=== PATIENT | male | born 1960 | race Caucasian/White ===

== ENCOUNTER 2022-08-25 10:22 | Outpatient (CLI) | payer OTHER, SELFPAY ==
--- NOTE | 2022-08-25 10:48 | XR_ITS ---
WS: [id number] EXAMINATION: XR chest 2V* [id number] REASON FOR EXAM: SHORTNESS OF BREATH COMPARISON: None available. ORDER DATE: 08/25/2022 10:59 AM FINDINGS: There is an ill-defined possible irregular nodular focus about 10 x 15 mm in outline possibly along t he margin of the partially visualized major fissure in the superior segment of one of the lower lobes probably left but cannot actually be visualized in the frontal view. The cardiac and mediastinal out lines are unremarkable. There are no significant pleural effusions . No significant abnormalities are noted in the spine or remainder of the bony thorax. XR/XR chest 2V* [id number] IMPRESSION: ILL-DEFINED NODULAR FOCUS DESCRIBED ON THE LATERAL CHEST VIEW, RECOMMEND CT IMAGING THE CHEST FOR FURTHER ASSESSMENT.
== END 2022-08-25 10:23 | disposition home or self-care (01) ==
PROVIDERS: PCP Family Medicine; Visit Provider Family Medicine
DX: R06.02 Shortness of breath (principal)
CPT/HCPCS: 71046

== ENCOUNTER 2022-08-26 08:58 | Observation (INO) | payer OTHER, SELFPAY ==
[2022-08-26] VITALS (20 sets, daily range): BP systolic 107–150; BP diastolic 63–87; PULSE 78–97; RESP 15–18; TEMP 36.5–37.2; O2SAT 95–100; BMI 28.6
--- NOTE | 2022-08-26 09:21 | ED_ITS ---
HPI - Recheck/Abnormal Lab/Rx General: Chief Complaint: Recheck/Abnormal Lab/Rx Stated Complaint: abnormal labs Time Seen by Provider: 08/26/22 09:02 History of Present Illness: 62-year-old male presents to the emergency department with his after being called this morning by his primary care doctor's office stating that his hemoglobin was 5.4. 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 He reports that he has had some lightheadedness, increased thirst, has been chewing on ice a lot lately. He has never had anemia before. He denies any history of gastrointestinal bleeding. He has not seen any black or bloody stools. No nosebleeds or blood loss anywhere that he is aware of. He does not have any known medical problems. He is normally not on any medications. He we nt to his doctor on Wednesday who did a lot of testing to figure out why he was feeling so unwell. They did start him on amoxicillin clavulanic acid and prednisone for some sinusitis. Patient's last colonoscopy was in 2019. He was told he did not have to have another 1 until 2028 Review of Systems General: Reports: 10 or more systems reviewed and unremarkable except in HPI and below Const: Reports: fatigue; Denies: fever(s), chills or body aches Eyes: Denies: change in vision ENMT: Denies: throat pain Card: Reports: lightheadedness, syncope, pre-syncope, dyspnea on exertion and other (At times he feels his heart racing); Denies: chest pain or edema Resp: Denies: dyspnea or productive cough GI: Denies: abdominal pain, nausea, vomiting, diarrhea, change in stool character, hematochezia or melena : Denies: flank pain, dysuria, urinary frequency or hematuria Musc: Denies: neck pain, back pain, extremity pain or extremity swelling Skin/Breast: Denies: rash or erythema Neuro: Denies: headache(s), numbness in extremities, weakness in extremities, lack of coordination or difficulty walking PFS ED PFSH: Medical History Pneumonia Surgical History (Updated 08/26/22 @ 12:36 by Peter Price MD) H/O rhinoplasty Family History (Updated 08/26/22 @ 12:36 by Peter Price MD) Other Cancer Social History (Updated 08/26/22 @ 12:36 by Peter Price MD) Smoking and tobacco status: never smoked Alcohol intake: current Alcohol intake frequency: 0-2 Drinks per Day Substance/Drug Use: never Physical Exam Const: COMMON NORMALS: no limitations, alert and well nourished EXAM LIMITATIONS: no altered mental status HENMT: COMMON NORMALS: normocephalic, atraumatic and external ears normal HEAD & SCALP: normocephalic and atraumatic EXTERNAL EAR: Yes external ears normal MOUTH: no muffled voice Eye: COMMON NORMALS: EOMs intact bilaterally, conjunctivae normal and no scleral icterus CONJUNCTIVA: Yes conjunctivae normal Neck/C-Spine: COMMON NORMALS: no JVD GENERAL: Yes normal visual inspection and Yes trachea midline Resp: COMMON NORMALS: normal respiratory effort and No use of accessory muscles Cardio: COMMON NORMALS: no JVD and regular rhythm RATE: tachycardic RHYTHM: regular rhythm GI: PALPATION: No Guarding due to palpation present (GI) Extremity: COMMON NORMALS: normal to inspection Neuro: COMMON NORMALS: moves all extremities, no focal motor deficits and no sensory deficits noted SENSORIUM/ORIENTATION: Yes alert SPEECH: speech normal Psych: COMMON NORMALS: mental status grossly normal, Normal thought process present, cooperative, normal affect and speech normal SPEECH: Yes normal speech THOUGHT PROCESS: Normal thought process present Skin: COMMON NORMALS: no rashes or lesions noted, turgor normal and no jaundice GENERAL SKIN EXAM: no rashes or lesions noted, turgor normal and pallor Course Vital Signs: Vital signs: Vital Signs Temperature 97.8 F 08/26/22 16:50 Pulse Rate 85 08/26/22 16:50 Respiratory Rate 18 08/26/22 16:50 Blood Pressure 136/76 08/26/22 16:50 Pulse Oximetry 98 08/26/22 16:50 Oxygen Delivery Me thod Room Air 08/26/22 14:29 MDM - Recheck/Abnormal Lab/Rx Medical Decision Making Patient is presenting to the emergency department for symptomatic anemia. The cause of the anemia is unclear. Fecal occult blood testing has been ordered. CBC with differential has been ordered. Blood loss, premature red blood cell destruction such as an hemolytic anemia, and mild dysplastic syndromes are being considered. This seems to have progressed over many weeks rather than overnight. Patient's hemoglobin was reported to be 5.4. He is pale. Plan on transfusing 2 units of blood. Patient has consented to this. Update Patient's white blood cell count is relatively low. Platelets are borderline low but nothing near critical. Patient's hemoglobin is confirmed very low. Patient's AST, ALT were normal. Remainder of hemolytic labs are pending. Patient has a creatinine of 3. I discussed case with the hospitalist. Hospitalist has discussed with the assistant dean. Cream Separator Operator has recommended we evaluate for possible multiple myeloma given the renal failure (clogging of the renal tubules). He has recommended a CT scan for further evaluation. They are going to admit the patient to the hospital. Lab Data 08/26/22 14:25 08/26/22 09:25 Radiology Impressions Chest/Abdomen/Pelvis CT 08/26/22 11:57 IMPRESSION: 1. Both lungs are well aerated. No acute pulmonary infiltrates. 2. Marked splenomegaly measuring 17.1 x 7.1 CM. Mild hepatomegaly. 3. Mild enlargement periaortic, aortocaval and proximal iliac lymph nodes the largest measuring approximately 1.7 cm. 4. Prominent pelvic iliac lymph nodes and RIGHT common femoral lymph node although difficult to delineate without contrast. Mild enlargement bilateral inguinal lymph nodes. 5. Recommend Correlation for lymphoma. 6. Numerous axillary lymph nodes although not pathologically enlarged. 7. 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 Laboratory Results WBC 2.8 10^3/uL (4.0-10.0) L 08/26/22 09:25 RBC 1.84 10^6/uL (4.1-5.3) L 08/26/22 09:25 Hgb 4.7 g/dL (11.7-16.6) L* 08/26/22 09:25 Hct 15.5 % (42.0-52.0) L* 08/26/22 09:25 MCV 84.2 fl (80-94) 08/26/22 09:25 MCH 25.5 pg (28.0-34.0) L 08/26/22 09:25 MCHC 30.3 g/dL (30.0-36.0) 08/26/22 09:25 RDW 20.0 % (12.1-15.1) H 08/26/22 09:25 Plt Count 185 10^3/cmm (130-400) 08/26/22 09:25 MPV 8.4 fL (7.4-10.4) 08/26/22 09:25 Neut % (Auto) 45.7 % 08/26/22 09:25 Lymph % (Auto) 43.9 % 08/26/22 09:25 [place] % (Auto) 8.6 % 08/26/22 09:25 Eos % (Auto) 0.0 % 08/26/22 09:25 Baso % (Auto) 0.4 % 08/26/22 09:25 Neut # (Auto) 1.28 10^3/uL (1.8-7.7) L 08/26/22 09:25 Lymph # (Auto) 1.2 10^3/uL (0.8-4.8) 08/26/22 09:25 [place] # (Auto) 0.2 10^3/uL (0.2-0.9) 08/26/22 09:25 Eos # (Auto) 0.0 10^3/uL (0.0-0.8) 08/26/22 09:25 Baso # (Auto) 0.0 10^3/uL (0.0-0.1) 08/26/22 09:25 Nucleated RBC % (auto) 0 % 08/26/22 09:25 Nucleated RBCs # 0.0 /100WBC 08/26/22 09:25 ESR 36 mm/hr (0-10) H 08/26/22 09:25 Haptoglobin 268.0 mg/L (30-200) H 08/26/22 09:25 Sodium 141 mmol/L (136-145) 08/26/22 09:25 Potassium 3.9 mmol/L (3.5-5.1) 08/26/22 09:25 Chloride 104 mmol/L (98-107) 08/26/22 09:25 Carbon Dioxide 24 mmol/L (22-29) 08/26/22 09:25 Anion Gap 16.9 (5-19) 08/26/22 09:25 BUN 41 mg/dL (8-23) H 08/26/22 09:25 Creatinine 3.0 mg/dL (0.7-1.2) H 08/26/22 09:25 GFR Calculation 21.2 mL/min (90-130) L 08/26/22 09:25 Glucose 96 mg/dL (65-115) 08/26/22 09:25 Calculated Osmolality 302 mOsm/kg (285-295) H 08/26/22 09:25 Calcium 8.5 mg/dL (8.5-10.5) 08/26/22 09:25 Iron 99 ug/dL (59-158) 08/26/22 09:25 TIBC 200 mcg/dl 08/26/22 09:25 % Saturation 49.5 % (20-50) 08/26/22 09:25 Unsat Iron Binding 101 ug/dL (112-347) L 08/26/22 09:25 Ferritin 313 ng/mL (30-400) 08/26/22 09:25 Total Bilirubin 0.2 mg/dL (0.15-1.2) 08/26/22 09:25 Direct Bilirubin 0.20 mg/dL (0.00-0.30) 08/26/22 09:25 AST 14 U/L (0-40) 08/26/22 09:25 ALT < 5 U/L (0-41) 08/26/22 09:25 Alkaline Phosphatase 74 U/L (40-130) 08/26/22 09:25 Lactate Dehydrogenase 196 U/L (135-225) 08/26/22 09:25 Creatine Kinase 78 U/L (39-308) 08/26/22 09:25 Total Protein 8.6 g/dL (6.6-8.7) 08/26/22 09:25 Albumin 3.5 g/dL (3.5-5.2) 08/26/22 09:25 Globulin 5.1 g/dL (1.3-4.6) H 08/26/22 09:25 Vitamin B12 300 pg/mL (232-1245) 08/26/22 09:25 Folate 16.2 ng/mL (4.5-32.2) 08/26/22 09:25 TSH 3.89 uIU/mL (0.27-4.20) 08/26/22 09:25 Urine Color Yellow (Yellow) 08/26/22 12:20 Urine Appearance Clear (CLEAR) 08/26/22 12:20 Urine pH 6.5 (5-7) 08/26/22 12:20 Ur Specific [place] 1.010 (1.005-1.030) 08/26/22 12:20 Urine Protein Trace (Negative) 08/26/22 12:20 Urine Glucose (UA) Norm (Normal) 08/26/22 12:20 Urine Ketones Negative (Negative) 08/26/22 12:20 Urine Blood 3+ (Negative) H 08/26/22 12:20 Urine Nitrate Negative (Negative) 08/26/22 12:20 Urine Bilirubin Neg (Negative) 08/26/22 12:20 Urine Urobilinogen Neg mg/dL (Negative) 08/26/22 12:20 Ur Leukocyte Esterase Negative (Negative) 08/26/22 12:20 Urine RBC 40-50 /hpf (0-2) H 08/26/22 12:20 Urine WBC 0-4 /hpf (0-5) H 08/26/22 12:20 Ur Squamous Epith Cells 0-4 /hpf (0-5) H 08/26/22 12:20 Amorphous Sediment Not Reportable 08/26/22 12:20 Urine Bacteria Trace /hpf (NONE) 08/26/22 12:20 Urine Mucus Trace /hpf 08/26/22 12:20 IgG 2291 mg/dL (700-1600) H 08/26/22 09:25 IgA 297 mg/dL (70-400) 08/26/22 09:25 IgM 1788 mg/dL (40-230) H 08/26/22 09:25 Blood Type O Positive 08/26/22 09:25 Rho(D) Type Positive 08/26/22 09:25 Antibody Screen Negative 08/26/22 09:25 Crossmatch See Detail 08/26/22 09:25 Discharge Plan Discharge Patient Disposition: Admitted As Inpatient Admit Provider: Peter Price Clinical Impression: Anemia, Leukopenia, Acute kidney injury Condition: Stable Coding Level of Care Code ED Compression Molding Machine Operator for Nayla Luevano
[2022-08-26 09:40] LABS: Basophils % 0.4 %; Lymphocytes # 1.2 10^3/uL (0.8-4.8); Lymphocytes % 43.9 %; Mean Corpuscular HGB Conc 30.3 g/dL (30.0-36.0); Mean Corpuscular Hemoglobin 25.5 pg (28.0-34.0); Mean Corpuscular Volume 84.2 fl (80-94); Mean Platelet Volume 8.4 fL (7.4-10.4); Monocytes # 0.2 10^3/uL (0.2-0.9); Monocytes % 8.6 %; Neutrophils # 1.28 10^3/uL (1.8-7.7); Neutrophils % 45.7 %; Nucleated Red Blood Cells % 0 %; Platelet Count 185 10^3/cmm (130-400); Red Blood Count 1.84 10^6/uL (4.1-5.3); White Blood Count 2.8 10^3/uL (4.0-10.0)
[2022-08-26 10:06] LABS: Hematocrit 15.5 % (42.0-52.0); Hemoglobin 4.7 g/dL (11.7-16.6)
[2022-08-26 10:24] LABS: Anion Gap 16.9 (5-19); Blood Urea Nitrogen 41 mg/dL (8-23); Calcium 8.5 mg/dL (8.5-10.5); Carbon Dioxide 24 mmol/L (22-29); Chloride 104 mmol/L (98-107); Glomerular Filtration Rate 21.2 mL/min (90-130); Glucose 96 mg/dL (65-115); Osmolality Calculated 302 mOsm/kg (285-295); Potassium 3.9 mmol/L (3.5-5.1); Sodium 141 mmol/L (136-145)
--- NOTE | 2022-08-26 11:04 | PC.NURSE ---
Blood transfusion #1 started at 1045. Education was provided to patient and he verbalized understanding. Vitals documented.
[2022-08-26] MEDS: acetaminophen 325 mg Tablet 650 MG PO (11:06)
[2022-08-26 11:34] LABS: Alanine Aminotransferase < 5 U/L (0-41); Albumin Level 3.5 g/dL (3.5-5.2); Alkaline Phosphatase 74 U/L (40-130); Aspartate Amino Transferase 14 U/L (0-40); Creatine Phosphokinase 78 U/L (39-308); Globulin 5.1 g/dL (1.3-4.6); Lactate Dehydrogenase 196 U/L (135-225); Total Bilirubin 0.2 mg/dL (0.15-1.2); Total Protein 8.6 g/dL (6.6-8.7)
--- NOTE | 2022-08-26 11:57 | CT_ITS ---
WS: [id number] CT CHEST, ABDOMEN, AND PELVIS TECHNIQUE: Noncontrast CT of the chest, abdomen, and pelvis with coronal and sagittal reformatted [place] ges. CLINICAL INFORMATION: anemia, renal failure COMPARISON: None. DLP: 762.[address] scans at [facility] use at least one of these dose optimization techniques: automated e xposure control; mA and/or kV adjustment per patient size (includes targeted exams where dose is matc hed to clinical indication); or iterative reconstruction. CT CHEST: Both lungs are well aerated. No acute pulmonary infiltrates. No focal pneumonia or pleural fluid. Sli ght bibasilar atelectasis. Cardiomegaly. Prominent LEFT ventricle. Normal caliber thoracic aorta. Nor mal caliber descending thoracic aorta. Trace pericardial effusion/thickening. Numerous axillary lymph nodes normal in size. Schmorl's nodes in the thoracic spine. CT ABDOMEN AND PELVIS: Hepatomegaly. Splenomegaly. Marked enlargement of the spleen measuring 17.1 x 7.1 cm. Normal GE junct ion. Normal gallbladder. Tiny amount of sludge or cholelithiasis. Adrenal glands are normal. Nonobstr ucting calyceal tip calculi. No hydronephrosis. Mild prostate enlargement with calcification. Normal noncontrast pancreas. Induration in the central mesentery with prominent lymph nodes compatible with Valentine mesentery. Prominent periaortic lymph node s. Largest LEFT periaortic and proximal iliac lymph node measures 1.8 cm. LEFT periaortic lymph node measuring 1.3 CM. Prominent aortocaval lymph nodes difficult to further evaluated without contrast. P rominent common iliac lymph nodes although difficult to delineate without contrast. Prominent RIGHT g reater than LEFT common femoral lymph nodes. Numerous prominent bilateral inguinal lymph nodes measur ing up to 1.[address]/[place] [id number] IMPRESSION: 1. Both lungs are well aerated. No acute pulmonary infiltrates. 2. Marked splenomegaly measuring 17.1 x 7.1 CM. Mild hepatomegaly. 3. Mild enlargement periaortic, aortocaval and proximal iliac lymph nodes the largest measuring approximately 1.7 cm. 4. Prominent pelvic iliac lymph nodes and RIGHT common femoral lymph node alth ough difficult to delineate without contrast. Mild enlargement bilateral inguin al lymph nodes. 5. Recommend Correlation for lymphoma. 6. Numerous axillary lymph nodes although not pathologically enlarged. 7. 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
[2022-08-26 12:30] LABS: Ferritin 313 ng/mL (30-400); Iron 99 ug/dL (59-158); Percent Saturation 49.5 % (20-50); Thyroid Stimulating Hormone 3.89 uIU/mL (0.27-4.20); Total Iron Binding Capacity 200 mcg/dl; Unsaturated Iron Binding 101 ug/dL (112-347)
--- NOTE | 2022-08-26 12:33 | P.HP_ITS ---
Providers/Chief Complaint Admitting Physician: Peter Price MD Primary Care Provider: Jimi Wagner MD Chief Complaint: abnormal labs History of Present Illness Werner Johnston is a 62 year old male patient of Dr. Wagner who presents to the emergency department at his request secondary to low hemoglobin noted on labs yesterday. It was approximately 5-1/2. The patient reports for the last 2 to 4 weeks he has been short of breath. Has had at least 1 syncopal event. He has been lightheaded at times. He reports no blood in his stool, black or tarry stools, nosebleeds, significant use of anti-inflammatories, or fever. He reports he has an occasional cough. No vomiting or diarrhea. Rare heartburn. Most recent colonoscopy 2019 which was normal and told he did not have to have again for 10 years. No history of EGD, anemia. Has no reported history of kidney disease. Certainly has been fatigued. He is currently receiving blood through the ED. Review of Systems General: Reports: 10 or more systems reviewed and unremarkable except in HPI and below Const: Reports: fatigue and malaise; Denies: fever(s) or chills Card: Denies: chest pain Resp: Reports: dyspnea GI: Denies: abdominal pain, nausea, vomiting, hematochezia or melena Medications/Allergies Home Medications Medication Instructions Recorded Confirmed Last Taken Type albuterol sulfate 90 mcg/actuation 1 puff inhalation Q6H PRN Wheezing 08/26/22 08/26/22 Unknown History aerosol inhaler amoxicillin 875 mg-potassium 1 tab PO BID 08/26/22 08/26/22 08/25/22 History clavulanate 125 mg tablet prednisone 20 mg tablet 20 mg PO BID 08/26/22 08/26/22 08/25/22 History Allergies Allergy/AdvReac Type Severity Reaction Status Date / Time No Known Allergies Allergy Verified 08/26/22 09:18 PFSH Acute PFSH: Medical History Pneumonia Surgical History (Updated 08/26/22 @ 12:36 by Peter Price MD) H/O rhinoplasty Family History (Updated 08/26/22 @ 12:36 by Peter Price MD) Other Cancer Social History (Updated 08/26/22 @ 12:36 by Peter Price MD) Smoking and tobacco status: never smoked Alcohol intake: current Alcohol intake frequency: 0-2 Drinks per Day Vitals/I&O/Wt Last Vital Signs Temp 98.3 F 08/26/22 11:28 Pulse 81 08/26/22 11:28 Resp 18 08/26/22 11:28 BP 123/72 08/26/22 11:28 Pulse Ox 97 08/26/22 11:28 O2 Del Method Room Air 08/26/22 09:26 08/25/22 08/26/22 08/26/22 22:59 06:59 14:59 Intake Total 0 / 0 Balance 0 / 0 Physical Exam Narrative: General exam is a pale male in no distress, blood is transfusing currently HEENT: Conjunctive a pale. Pupils equally round. Oropharynx clear. Lips pale. Neck is supple no lymphadenopathy or thyromegaly Cardiovascular regular rate and rhythm without murmur Lungs clear no wheezing or crackles Abdomen is soft nontender positive bowel sounds. No obvious organomegaly exam is deferred Extremities no cyanosis clubbing or edema Skin is dry Neuro no obvious focal deficits Data 08/26/22 09:25 08/26/22 09:25 Other Labs: MCV is 84, RDW 20, absolute neutrophil count 1280 ESR 36 Haptoglobin 268 Iron saturation is normal LFTs are normal Globulin elevated at 5.1 TSH normal Folate pending, B12 is pending Urinalysis pending Immunoglobulin levels pending LDH normal Serum protein electrophoresis is ordered, kappa lambda light chain testing is ordered. CK normal I have ordered a noncontrast CT chest abdomen and pelvis Chest x-ray which I reviewed demonstrates no infiltrate on AP view. However, there is concern of a nodular focus on lateral A&P Assessment and plan (1) Anemia: Patient presents with severe symptomatic anemia, with history of symptoms of shortness of breath and syncope at home. He believes this has been going on 2 to 4 weeks at minimum. He is heme-negative in the emergency department. He has no history of blood loss. It is highly concerning this may be secondary to a bone marrow issue. Myeloma, myelodysplasia must be ruled out. There is no evidence of iron deficiency anemia on testing Repeat Hemoccult has been ordered for laboratory B12 and folate are pending. TSH is normal. LDH is normal. Haptoglobin is elevated, there is no evidence of hemolysis. I have ordered a peripheral smear, and contacted Dr. Cohen our demonstrator knitting for consultation After visiting with him he directed me to go ahead and do a kappa lambda light chain analysis in addition to the serum protein electrophoresis already ordered. Immunoglobulin levels will also be done, sedimentation rate. Repeat CBC tomorrow (2) Acute kidney injury: Etiology is not known. It is assumed this is acute kidney injury. Certainly if he has myeloma, this could be connected with this condition. Obtain CT of abdomen and pelvis without contrast to rule out obstruction Avoid renal toxic medications Considering he is getting 2 units of blood now, and will likely receive more I will not give a lot of IV fluids as this could fluid overload him significantly. Repeat BMP tomorrow (3) Leukopenia: Likely related to underlying bone marrow abnormality Plan Abnormal chest x-ray. CT without contrast of chest is ordered History of reflux. Initiate Protonix Full code currently SCDs for DVT prophylaxis. After further clarification, will discuss whether anticoagulation should be ordered tomorrow after correction of severe anemia Attestations Medical Necessity Statement*: May need less than 2 midnight stay for stabilization of acute anemia and acute renal failure. Diagnoses Anemia D64.9 Acute kidney injury N17.9 Leukopenia D72.819 Time Spent (min) 67
[2022-08-26 12:36] LABS: Erythrocyte Sedimentation Rate 36 mm/hr (0-10)
[2022-08-26 13:00] LABS: Blood Urine 3+ (Negative); Glucose Urine UA Norm (Normal); Ketones Urine Negative (Negative); Nitrate Urine Negative (Negative); Protein Urine Trace (Negative); Urine Appearance Clear (CLEAR); Urine Color Yellow (Yellow); pH Urine 6.5 (5-7)
[2022-08-26 13:01] LABS: Add Urine Microscopic? YES; Bilirubin Urine Neg (Negative); Leukocyte Esterase Urine Negative (Negative); Urobilinogen Urine Neg (Negative)
[2022-08-26 13:03] LABS: LAB Peripheral Smear Sent for Review
[2022-08-26 13:20] LABS: RBC Urine 40-50 /hpf (0-2); Squamous Epithelial Cell Urine 0-4 /hpf (0-5); WBC Urine 0-4 /hpf (0-5)
[2022-08-26 13:21] LABS: Add Urine Culture? Yes; Bacteria Urine TRACE /hpf; Mucus Urine TRACE /hpf
--- NOTE | 2022-08-26 13:25 | PC.NURSE ---
Blood transfusion #1 done at 1325. Patient in NAD. Report called to med surg.
[2022-08-26] MEDS: sodium chloride 0.9% 100 mL Bag 50 ML IV (13:27)
[2022-08-26 13:30] LABS: Vitamin B12 300 pg/mL (232-1245)
[2022-08-26 14:27] LABS: Folate Level 16.2 ng/mL (4.5-32.2)
[2022-08-26 14:39] LABS: Hematocrit 20.3 % (42.0-52.0); Hemoglobin 6.2 g/dL (11.7-16.6)
[2022-08-26 15:17] LABS: Immunoglobulin IGA 297 mg/dL (70-400); Immunoglobulin IGG 2291 mg/dL (700-1600)
[2022-08-26 15:31] LABS: Immunoglobulin IGM 1788 mg/dL (40-230)
--- NOTE | 2022-08-26 19:23 | P.CONIM_ITS ---
Providers/Reason For Consult Consulting Physician/Specialty*: Hematology Reason for Consult*: Anemia Requesting Physician: Peter Price MD Attending Physician: Peter Price MD Primary Care Provider: Jimi Wagner MD History of Present Illness History of Present Illness Werner Johnston is a 62 year old with severe anemia. He has previously been in good health with no ongoing prior medical illnesses. He first became symptomatic approximately 3 weeks ago with onset of sore throat, productive cough, and discomfort in his upper chest. Over the past 2 weeks he became more fatigued, and he also developed shortness of breath and lightheadedness. He has had a decline in his activity tolerance, but he is still doing some work at home. His ECOG score is 1. He still has good appetite, and his weight has been stable. He has not had fever or night sweats. He currently has no GI or complaints. He has no significant joint or bone pain. He does not complain of headache, he has not been having any focal neurologic symptoms. He has not been aware of any abnormal bruising or bleeding. He was seen in the office yesterday by Dr. Wagner and found to be significantly anemic with hemoglobin in the range of 5.5 g. On evaluation in the emergency room today his CBC showed hemoglobin low at 4.7 g with hematocrit 15.5 %. The red cell indices were in the low normal range. The white blood cell count was 2800 with the differential showing 45% neutrophils, 43% lymphocytes, and 8% monocytes. The platelet count was normal at 185,000. Sed rate was mildly elevated at 36 mm/h. LDH was normal at 196 U/L.haptoglobin was elevated at 268.0 mg/L. His comprehensive metabolic profile showed significant renal impairment with BUN 41 and creatinine 3.0 mg/dL. Bilirubin and liver enzymes were normal. Albumin was 3.5 g/dL with calculated serum globulin mildly elevated 5.1 g/dL. The serum iron studies showed normal transferrin saturation of 49% and the ferritin was normal at 313 ng/mL. B12 and folate levels were normal at 300 pg/mL and 16.2 ng/mL respectively. TSH was normal at 3.89 ?IU/mL. The quantitative immunoglobulin levels showed mildly elevated IgG at 2291 mg/dL, IgA normal at 297 mg/dL, and IgM more significantly elevated at 1788 mg/dL. Noncontrast CT scans of the chest, abdomen, and pelvis showed no evidence of acute pulmonary infiltrate. There was noted to be marked splenomegaly with the spleen measured at 17.1 x 7.1 cm. Mild hepatomegaly was noted. Also noted were mildly enlarged periaortic, aortocaval, and proximal iliac lymph nodes, the largest measuring 1.7 cm. Pelvic iliac lymph nodes and a right common femoral lymph node were noted to be prominent, but difficult to measure. There was mild enlargement of bilateral inguinal lymph nodes. Numerous axillary nodes were not pathologically enlarged. There was slight induration in the central mesentery compatible with mesenteric misting with prominent central mesenteric lymph nodes. I have not yet had an opportunity to review the blood smear, but a verbal report from the pathologist indicated that it showed atypical plasma cells. He currently is being transfused packed red blood cells. Based on the blood smear findings, a whole blood flow cytometry study has been requested. Protein electrophoresis studies also are pending. Review of Systems Narrative: Constitutional: He has been feeling tired and he has been lightheaded. Appetite is good and weight is stable. No fever, night sweats, or hot flashes. ECOG score is 1. Eyes:?No change in vision. ENMT: No hearing loss or tinnitus. No sinus congestion/drainage. No mouth sores. He has had sore throat, but no difficulty swallowing. Hematologic/Lymphatic: No abnormal bruising or bleeding. Respiratory: He has had productive cough, and he has been short of breath. No pleuritic pain or hemoptysis. Cardiovascular: No angina pain. No palpitations. Gastrointestinal: No nausea or vomiting. HE has had some acid reflux. No diarrhea or constipation. No blood in the stool or black stools. Genitourinary: No dysuria or hematuria. No urinary frequency. No urgency or incontinence. Musculoskeletal: No joint or bone pain. Integumentary: No skin rash or other skin changes. Neurologic: No headache. No numbness or tingling. No other focal neurologic symptoms. Psych:?No anxiety and depression. No insomnia. Medications/Allergies Home Medications Medication Instructions Recorded Confirmed Last Taken Type albuterol sulfate 90 mcg/actuation 1 puff inhalation Q6H PRN Wheezing 08/26/22 08/26/22 Unknown History aerosol inhaler amoxicillin 875 mg-potassium 1 tab PO BID 04/05/0808/26/22 08/25/22 History clavulanate 125 mg tablet prednisone 20 mg tablet 20 mg PO BID 08/26/22 08/26/22 08/25/22 History Allergies Allergy/AdvReac Type Severity Reaction Status Date / Time No Known Allergies Allergy Verified 08/26/22 09:18 PFSH Acute PFSH: Medical History Pneumonia Surgical History (Updated 08/26/22 @ 12:36 by Peter Price MD) H/O rhinoplasty Family History (Updated 08/26/22 @ 19:41 by Raphael Cohen MD) Father Mesothelioma Other Cancer Social History (Updated 08/26/22 @ 12:36 by Peter Price MD) Smoking and tobacco status: never smoked Alcohol intake: current Alcohol intake frequency: 0-2 Drinks per Day Substance/Drug Use: never Vitals/I&O/Wt Last Vital Signs Temp 97.9 F 08/26/22 18:50 Pulse 96 08/26/22 18:50 Resp 18 08/26/22 18:50 BP 142/82 08/26/22 18:50 Pulse Ox 97 08/26/22 18:50 O2 Del Method Room Air 08/26/22 14:29 08/26/22 08/26/22 08/26/22 06:59 14:59 22:59 Intake Total 350 / 350 0 / 350 Balance 350 / 350 0 / 350 Weight last 48 hrs Weight 83.007 kg Physical Exam Narrative: Constitutional: He appears to be in good general health. Eyes: Sclerae nonicteric. Conjunctivae clear. ENMT: No lesions noted in the oral cavity. Neck: Neck shows no mass or thyromegaly. Hematologic/Lymphatic: There is no cervical, clavicular, or axillary adenopathy noted. Respiratory: Lungs sound clear. He has good air movement bilaterally. Cardiovascular: Heart rhythm is regular. There is a systolic murmur. There is no gallop or rub noted. Abdomen: Soft and non-tender. Liver does not appear enlarged. Spleen is palpable laterally approximately 5 cm below the costal margin. There is no abdominal mass or ascites noted. I do not feel any inguinal adenopathy. Extremities: No edema. Pedal pulses are palpable bilaterally. Integumentary: No rashes. No suspicious skin lesions noted. Neurologic: No focal neurologic deficits noted. Data 08/26/22 14:25 08/26/22 09:25 A&P Assessment and plan (1) Anemia: Patient with severe anemia. There is associated acute renal impairment, splenomegaly, and fairly generalized, mild lymphadenopathy. He also was noted on blood smear to have circulating atypical plasma cells, and he has a significantly elevated IgM level. 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 It also could be another form of low-grade B cell lymphoma, but at this point myeloma appears to be unlikely. He is now being transfused packed red blood cells. The main concern other than the anemia is the renal impairment, which is presumed to be acute. The exact cause for this is uncertain. His laboratory studies tomorrow will include protein electrophoresis studies and a uric acid level. Whole blood flow cytometry also is pending. His further evaluation will need to include bone marrow aspiration/biopsy and staging PET/CT, though these studies will not be available here as an inpatient. If his renal function remains stable or impro ves, it may be feasible to complete his evaluation as an outpatient. If there is any further decline in the renal function, I would definitely recommend transferring to a tertiary care facility. Coding Level of Care Code 13682 Diagnoses Anemia D64.9 Time Spent (min) 60
[2022-08-27] VITALS (7 sets, daily range): BP systolic 108–135; BP diastolic 64–72; PULSE 82–100; RESP 16–18; TEMP 36.9–37.2; O2SAT 96–99
[2022-08-27] MEDS: sodium chloride 0.9% 1,000 ML 75 ML IV ×2 (01:00→14:41)
[2022-08-27 05:34] LABS: Basophils % 0.4 %; Hematocrit 23.1 % (42.0-52.0); Hemoglobin 7.2 g/dL (11.7-16.6); Lymphocytes # 0.6 10^3/uL (0.8-4.8); Lymphocytes % 24.1 %; Mean Corpuscular HGB Conc 31.2 g/dL (30.0-36.0); Mean Corpuscular Hemoglobin 25.9 pg (28.0-34.0); Mean Corpuscular Volume 83.1 fl (80-94); Mean Platelet Volume 8.6 fL (7.4-10.4); Monocytes # 0.2 10^3/uL (0.2-0.9); Monocytes % 9.2 %; Neutrophils # 1.69 10^3/uL (1.8-7.7); Neutrophils % 64.8 %; Nucleated Red Blood Cells % 0 %; Platelet Count 202 10^3/cmm (130-400); Red Blood Count 2.78 10^6/uL (4.1-5.3); Red Cell Distribution Width 19.5 % (12.1-15.1); White Blood Count 2.6 10^3/uL (4.0-10.0)
[2022-08-27 05:54] LABS: Alanine Aminotransferase < 5 U/L (0-41); Albumin Level 3.2 g/dL (3.5-5.2); Alkaline Phosphatase 69 U/L (40-130); Anion Gap 15.5 (5-19); Aspartate Amino Transferase 12 U/L (0-40); Blood Urea Nitrogen 37 mg/dL (8-23); Calcium 8.4 mg/dL (8.5-10.5); Carbon Dioxide 23 mmol/L (22-29); Chloride 107 mmol/L (98-107); Globulin 5.1 g/dL (1.3-4.6); Glomerular Filtration Rate 20.5 mL/min (90-130); Glucose 89 mg/dL (65-115); Osmolality Calculated 300 mOsm/kg (285-295); Potassium 4.5 mmol/L (3.5-5.1); Sodium 141 mmol/L (136-145); Total Bilirubin 0.4 mg/dL (0.15-1.2); Total Protein 8.3 g/dL (6.6-8.7)
[2022-08-27 05:56] LABS: Uric Acid 5.8 mg/dL (3.4-7.0)
--- NOTE | 2022-08-27 09:46 | P.DS_ITS ---
Discharge Providers Date of Admission: 08/26/22 13:16 Date of Discharge: August 27, 2022 Attending Provider at Admission: Peter Price MD Attending Provider at Discharge: Peter Price MD Primary Care Provider: Jimi Wagner MD Diagnoses at Discharge Discharge Diagnosis (1) Anemia: Status: Acute Reason for Visit Reason for Visit: abnormal labs Hospital Course Hospital Course Werner is a 62-year-old white male who presented to the hospital with shortness of breath, syncopal episode a week ago at the instruction of a primary care provider he saw the previous day. On that day he had a CBC drawn, that came back with significant anemia. In the emergency department this was confirmed, with a hemoglobin of 4.7. Considering the patient had severe anemia, that was symptomatic 2 units of packed red blood cells were ordered. Calcium, albumin were normal. Liver function tests, LDH was normal. Globulin slightly high. Peripheral smear was concerning for abnormal plasma lymphocyte cells. Initial creatinine 3.0, urinalysis unimpressive other than 40-50 red blood cells. No significant proteinuria. CT scan chest abdomen pelvis demonstrated some enlarged lymph nodes, no evidence of renal obstruction, and some splenomegaly. I consulted hematology, and immunoglobulin levels were obtained. IgG and IgM were elevated at 2291 and 17 8 8 respectively. Immunofixation, lymphoma panel, free kappa lambda chain assays were all ordered. Other studies such as TSH, folate, B12, iron saturation were all normal. Repeat hemoglobin following 2 units of blood was 6.2 so 2 units more were ordered. He also received IV fluids. The following day his hemoglobin was 7.2, white blood cell count 2.6 with an ANC of 1700, and a platelet count of 202,000. Repeat creatinine was 3.1. I have visited with oncology who believed that he would be best served by going to a tertiary care center. This was arranged at [facility], under the care of Dr. Guerrero. Benefits and risks of transfer were discussed. Family had an opportunity ask questions and agreed with the plan. 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 Uric acid level was also checked and normal. Physical Exam Narrative: General exam no distress Neck is supple Cardiovascular regular rate and rhythm Lungs clear Abdomen is soft, nontender Extremities no cyanosis clubbing or edema Skin without rash Discharge Data Studies Completed and Pending Completed Studies During Hospitalization Category Date Time Status CT chest abdomen pelvis [[place] [id number] Cat Scan 08/26/22 11:57 Completed ] Stat Pending at discharge Category Date Time Status Fecal Occult Blood [Immunochemical Fecal OCB] Routine Lab 08/26/22 12:00 Uncollected Fecal Occult Blood [Immunochemical Fecal OCB] Routine Lab 08/26/22 12:33 Ordered Immunofixation Serum Stat Lab 08/26/22 14:25 Received Irradiated Leuko Red RBC Routine Lab 08/26/22 10:10 Results KAPPA/LAMBDA LIGHT FREE SERUM Routine Lab 08/26/22 14:25 Received Retype for Patiets ABO/Rh Routine Lab 08/26/22 10:10 Results Serum Protien Electrophoresis [Total Protein Lab 08/26/22 14:25 Received Electrophoresis] Routine Urine Culture Stat Lab 08/26/22 12:20 Received Radiology Impressions Chest/Abdomen/Pelvis CT 08/26/22 11:57 IMPRESSION: 1. Both lungs are well aerated. No acute pulmonary infiltrates. 2. Marked splenomegaly measuring 17.1 x 7.1 CM. Mild hepatomegaly. 3. Mild enlargement periaortic, aortocaval and proximal iliac lymph nodes the largest measuring approximately 1.7 cm. 4. Prominent pelvic iliac lymph nodes and RIGHT common femoral lymph node although difficult to delineate without contrast. Mild enlargement bilateral inguinal lymph nodes. 5. Recommend Correlation for lymphoma. 6. Numerous axillary lymph nodes although not pathologically enlarged. 7. 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 Laboratory Results WBC 2.6 10^3/uL (4.0-10.0) L 08/27/22 05:04 RBC 2.78 10^6/uL (4.1-5.3) L 08/27/22 05:04 Hgb 7.2 g/dL (11.7-16.6) L 08/27/22 05:04 Hct 23.1 % (42.0-52.0) L 08/27/22 05:04 MCV 83.1 fl (80-94) 08/27/22 05:04 MCH 25.9 pg (28.0-34.0) L 08/27/22 05:04 MCHC 31.2 g/dL (30.0-36.0) 08/27/22 05:04 RDW 19.5 % (12.1-15.1) H 08/27/22 05:04 Plt Count 202 10^3/cmm (130-400) 08/27/22 05:04 MPV 8.6 fL (7.4-10.4) 08/27/22 05:04 Neut % (Auto) 64.8 % 08/27/22 05:04 Lymph % (Auto) 24.1 % 08/27/22 05:04 [place] % (Auto) 9.2 % 08/27/22 05:04 Eos % (Auto) 0.0 % 08/27/22 05:04 Baso % (Auto) 0.4 % 08/27/22 05:04 Neut # (Auto) 1.69 10^3/uL (1.8-7.7) L 08/27/22 05:04 Lymph # (Auto) 0.6 10^3/uL (0.8-4.8) L 08/27/22 05:04 [place] # (Auto) 0.2 10^3/uL (0.2-0.9) 08/27/22 05:04 Eos # (Auto) 0.0 10^3/uL (0.0-0.8) 08/27/22 05:04 Baso # (Auto) 0.0 10^3/uL (0.0-0.1) 08/27/22 05:04 Nucleated RBC % (auto) 0 % 08/27/22 05:04 Nucleated RBCs # 0.0 /100WBC 08/27/22 05:04 ESR 36 mm/hr (0-10) H 08/26/22 09:25 Haptoglobin 268.0 mg/L (30-200) H 08/26/22 09:25 Sodium 141 mmol/L (136-145) 08/27/22 05:04 Potassium 4.5 mmol/L (3.5-5.1) 08/27/22 05:04 Chloride 107 mmol/L (98-107) 08/27/22 05:04 Carbon Dioxide 23 mmol/L (22-29) 08/27/22 05:04 Anion Gap 15.5 (5-19) 08/27/22 05:04 BUN 37 mg/dL (8-23) H 08/27/22 05:04 Creatinine 3.1 mg/dL (0.7-1.2) H 08/27/22 05:04 GFR Calculation 20.5 mL/min (90-130) L 08/27/22 05:04 Glucose 89 mg/dL (65-115) 08/27/22 05:04 Calculated Osmolality 300 mOsm/kg (285-295) H 08/27/22 05:04 Uric Acid 5.8 mg/dL (3.4-7.0) 08/27/22 05:04 Calcium 8.4 mg/dL (8.5-10.5) L 08/27/22 05:04 Iron 99 ug/dL (59-158) 08/26/22 09:25 TIBC 200 mcg/dl 08/26/22 09:25 % Saturation 49.5 % (20-50) 08/26/22 09:25 Unsat Iron Binding 101 ug/dL (112-347) L 08/26/22 09:25 Ferritin 313 ng/mL (30-400) 08/26/22 09:25 Total Bilirubin 0.4 mg/dL (0.15-1.2) 08/27/22 05:04 Direct Bilirubin 0.20 mg/dL (0.00-0.30) 08/26/22 09:25 AST 12 U/L (0-40) 08/27/22 05:04 ALT < 5 U/L (0-41) 08/27/22 05:04 Alkaline Phosphatase 69 U/L (40-130) 08/27/22 05:04 Lactate Dehydrogenase 196 U/L (135-225) 08/26/22 09:25 Creatine Kinase 78 U/L (39-308) 08/26/22 09:25 Total Protein 8.3 g/dL (6.6-8.7) 08/27/22 05:04 Albumin 3.2 g/dL (3.5-5.2) L 08/27/22 05:04 Globulin 5.1 g/dL (1.3-4.6) H 08/27/22 05:04 Vitamin B12 300 pg/mL (232-1245) 08/26/22 09:25 Folate 16.2 ng/mL (4.5-32.2) 08/26/22 09:25 TSH 3.89 uIU/mL (0.27-4.20) 08/26/22 09:25 Urine Color Yellow (Yellow) 08/26/22 12:20 Urine Appearance Clear (CLEAR) 08/26/22 12:20 Urine pH 6.5 (5-7) 08/26/22 12:20 Ur Specific [place] 1.010 (1.005-1.030) 08/26/22 12:20 Urine Protein Trace (Negative) 08/26/22 12:20 Urine Glucose (UA) Norm (Normal) 08/26/22 12:20 Urine Ketones Negative (Negative) 08/26/22 12:20 Urine Blood 3+ (Negative) H 08/26/22 12:20 Urine Nitrate Negative (Negative) 08/26/22 12:20 Urine Bilirubin Neg (Negative) 08/26/22 12:20 Urine Urobilinogen Neg mg/dL (Negative) 08/26/22 12:20 Ur Leukocyte Esterase Negative (Negative) 08/26/22 12:20 Urine RBC 40-50 /hpf (0-2) H 08/26/22 12:20 Urine WBC 0-4 /hpf (0-5) H 08/26/22 12:20 Ur Squamous Epith Cells 0-4 /hpf (0-5) H 08/26/22 12:20 Amorphous Sediment Not Reportable 08/26/22 12:20 Urine Bacteria Trace /hpf (NONE) 08/26/22 12:20 Urine Mucus Trace /hpf 08/26/22 12:20 IgG 2291 mg/dL (700-1600) H 08/26/22 09:25 IgA 297 mg/dL (70-400) 08/26/22 09:25 IgM 1788 mg/dL (40-230) H 08/26/22 09:25 Blood Type O Positive 08/26/22 09:25 Rho(D) Type Positive 08/26/22 09:25 Antibody Screen Negative 08/26/22 09:25 Crossmatch See Detail 08/26/22 09:25 Vitals Last Vital Signs Temp 98.7 F 08/27/22 08:00 Pulse 96 08/27/22 08:00 Resp 18 08/27/22 08:00 BP 135/67 08/27/22 08:00 Pulse Ox 96 08/27/22 08:00 O2 Del Method Room Air 08/27/22 03:59 Discharge Plan Discharge Patient Disposition: Xfer Short-Term Hosp Condition: Stable Prescriptions: No Action prednisone 20 mg tablet 20 mg PO BID Rx Instructions: for 5 days (rx filled 08/25/22) albuterol sulfate 90 mcg/actuation HFA aerosol inhaler 1 puff INHALATION Q6H PRN (Reason: Wheezing) amoxicillin-pot clavulanate 875-125 mg tablet 1 tab PO BID Rx Instructions: for 7 days (rx filled 08/25/22) Discharge Orders: Transfer Out of Facility (Order); Ordered 08/27/22 Ordered By: Peter Price Referrals: Jimi Wagner MD [Primary Care Provider] - Discharge Attestations Time Spent in Discharge Care*: greater than 30 min Quality Metrics Clinical Quality Measures [ No reported AMI, CVA or VTE this stay] Coding Level of Care Code 17405 Total time (in minutes) for Discharge: 63 Diagnoses Anemia D64.9
[2022-08-27 10:54] LABS: PROTEIN, TOTAL 8.7 g/dL (6.1-8.1)
[2022-08-27 11:10] LABS: KAPPA LIGHT CHAIN, FREE, SERUM 191.1 mg/L (3.3-19.4); KAPPA/LAMBDA LIGHT CHAINS FREE 1.64 (0.26-1.65); LAMBDA LIGHT CHAIN, FREE, SERU 116.4 mg/L (5.7-26.3)
--- NOTE | 2022-08-27 12:12 | PC.CHAP ---
Pastoral Care Encounter/Spiritual Assessment Type of Contact [] Declined assembler molded frames visit [] Patient/Family/Request visit [] Outpatient visit [] Follow-up visit [] Physician referral [] Code/Alert [x] Routine visit [] Staff referral [] Actively dying [] Patient sleeping [] Family support [] [] Out of room [] Palliative care [] [x] Receiving care in room [] Pre-surgical visit [] Trauma [] Long length of stay [] ICU visit [] Other: Relational/Emotional Strength [x] Patient feels connected with others/family/visitors/staff [] Distress [] Loneliness/isolation [] Abandonment Spirituality of Patient [x] Person of Zahra [x] Attends Denominational of their Zahra [x] Believes in Prayer [] Reads Bible or Synagogue materials [] There are Spiritual issues to be addressed Starting Sheet Tank Operator Interventions [x] Prayer [x] Active listening [x] Non-anxious presence [x] Spiritual/emotional support [] Crisis/trauma care [x] Spiritual counseling [] Bereavement support [] Provided bereavement packet [] Provided Bible/devotional materials [] Provided toy/stuffed animal, coloring book to patient or family member [] Provided Communion [] Anointing/[place] [] Salvation [x] Completed spiritual assessment [] Other: Impact on Illness or Injury [] Angry [] Fearful [] Anxious [] Often cries [] Exhaustion [] Unable to work [] Unable to attend judaism [] Unable to walk/stand [] Unable to read [] Unable to drive [] Unable to eat/drink [] Unable to sleep [] Unable to be with family [] Patient intubated [] Other: Summary abnormal Labs will be going to [facility] for treatment Time spent with patient 10 mins
[2022-08-27 12:44] LABS: Leukemia Profile (BBPL) See Report; Lymphoma Profile (BBPL) See Report
[2022-08-27 13:24] LABS: ABNORMAL PROTEIN BAND 1 1.7 g/dL (NONE DETECTED); ALBUMIN 3.3 g/dL (3.8-4.8); ALPHA 1 GLOBULIN 0.4 g/dL (0.2-0.3); ALPHA 2 GLOBULIN 0.8 g/dL (0.5-0.9); BETA 1 GLOBULIN 0.5 g/dL (0.4-0.6); BETA 2 GLOBULIN 0.5 g/dL (0.2-0.5); GAMMA GLOBULIN 3.3 g/dL (0.8-1.7)
[2022-08-28] VITALS (13 sets, daily range): BP systolic 111–151; BP diastolic 64–78; PULSE 81–87; RESP 14–18; TEMP 36.6–37.7; O2SAT 95–97
[2022-08-28] MEDS: sodium chloride 0.9% 1,000 ML 100 ML IV ×3 (01:47→23:35)
[2022-08-28 05:43] LABS: Basophils % 0.8 %; Hemoglobin 6.7 g/dL (11.7-16.6); Lymphocytes % 39.3 %; Mean Corpuscular HGB Conc 30.5 g/dL (30.0-36.0); Mean Corpuscular Hemoglobin 25.3 pg (28.0-34.0); Mean Platelet Volume 8.3 fL (7.4-10.4); Monocytes # 0.3 10^3/uL (0.2-0.9); Monocytes % 10.9 %; Neutrophils # 1.24 10^3/uL (1.8-7.7); Neutrophils % 48.2 %; Nucleated Red Blood Cells % 0 %; Platelet Count 177 10^3/cmm (130-400); Red Blood Count 2.65 10^6/uL (4.1-5.3); Red Cell Distribution Width 19.2 % (12.1-15.1); White Blood Count 2.6 10^3/uL (4.0-10.0)
[2022-08-28 06:00] LABS: Alanine Aminotransferase < 5 U/L (0-41); Albumin Level 2.9 g/dL (3.5-5.2); Alkaline Phosphatase 62 U/L (40-130); Anion Gap 14.7 (5-19); Aspartate Amino Transferase 11 U/L (0-40); Blood Urea Nitrogen 33 mg/dL (8-23); Calcium 8.3 mg/dL (8.5-10.5); Carbon Dioxide 22 mmol/L (22-29); Chloride 107 mmol/L (98-107); Glomerular Filtration Rate 22.1 mL/min (90-130); Glucose 91 mg/dL (65-115); Osmolality Calculated 295 mOsm/kg (285-295); Potassium 4.7 mmol/L (3.5-5.1); Sodium 139 mmol/L (136-145); Total Bilirubin 0.3 mg/dL (0.15-1.2); Total Protein 7.9 g/dL (6.6-8.7)
--- NOTE | 2022-08-28 07:48 | PM.PN ---
Subjective Subjective: Werner reports he was doing okay. Unfortunately [facility] did not have a bed yesterday and he is holding here today until that happens. He denies any symptoms. We discussed the current plan, and that his hemoglobin is drifted down. He agrees to blood transfusion. Medications: Reviewed: Yes Vitals/I&O/Wt Last Vital Signs Temp 98.9 F 08/28/22 04:00 Pulse 84 08/28/22 04:00 Resp 16 08/28/22 04:00 BP 123/65 08/28/22 04:00 Pulse Ox 95 08/28/22 04:00 O2 Del Method Room Air 08/28/22 04:00 08/27/22 08/28/22 08/28/22 22:59 06:59 14:59 Intake Total 360 / 1600 1000 / 2600 Output Total 600 / 600 300 / 900 Balance -240 / 1000 700 / 1700 Weight last 48 hrs Weight 83.007 kg Physical Exam Narrative: General exam no distress Neck is supple Cardiovascular regular rate and rhythm Lungs clear Abdomen is soft, nontender Extremities no cyanosis clubbing or edema Skin without rash Data 08/28/22 05:12 08/28/22 05:12 Micro: Microbiology 08/27/22 13:08 Occult Blood (FIT) - Final Stool - Stool Aspirate A&P Assessment and plan (1) Anemia: Patient presents with severe symptomatic anemia, with history of symptoms of shortness of breath and syncope at home. He believes this has been going on 2 to 4 weeks at minimum. He is heme-negative in the emergency department. He has no history of blood loss. It is highly concerning this may be secondary to a bone marrow issue. Myeloma, myelodysplasia must be ruled out. There is no evidence of iron deficiency anemia on testing B12 and folate are normal. TSH is normal. LDH is normal. Haptoglobin is elevated, there is no evidence of hemolysis. Peripheral smear, additional laboratory testing including CT consistent with lymphoma He has received 4 units of packed red blood cells. We will transfuse him 1 unit today for hemoglobin of 6.7. Awaiting transfer to [facility]. He was accepted there yesterday but we are awaiting a bed. IgG and IgM levels high. Concern of monoclonal gammopathy, awaiting immunofixation Plan Abnormal chest x-ray. CT chest no significant infiltrate History of reflux. Continue Protonix Full code currently SCDs for DVT prophylaxis. Lovenox subcutaneous for DVT prophylaxis Attestations Medical Necessity Statement*: Awaiting transfer Diagnoses Anemia D64.9 Time Spent (min) 25
[2022-08-28] MEDS: enoxaparin 40 mg/0.4 mL Syringe SUBCUT (10:03)
[2022-08-28] MEDS: sodium chloride 0.9% (100 ml) 100 ML (10:40)
--- NOTE | 2022-08-28 14:42 | PC.NURSE ---
Maye christian [place] from [facility] for updated vitals and patient update. Maye stated they were trying really hard to open a bed today.
[2022-08-29] VITALS: BP 143/65; PULSE 84; RESP 17; TEMP 37.2; O2SAT 96
[2022-08-29 04:00] VITALS: BP 117/69; PULSE 77; RESP 16; TEMP 37.2; O2SAT 97
[2022-08-29 05:12] LABS: Basophils % 0.8 %; Hematocrit 24.7 % (42.0-52.0); Hemoglobin 7.7 g/dL (11.7-16.6); Lymphocytes # 1.2 10^3/uL (0.8-4.8); Lymphocytes % 47.3 %; Mean Corpuscular HGB Conc 31.2 g/dL (30.0-36.0); Mean Corpuscular Hemoglobin 26.4 pg (28.0-34.0); Mean Corpuscular Volume 84.6 fl (80-94); Mean Platelet Volume 8.5 fL (7.4-10.4); Monocytes # 0.3 10^3/uL (0.2-0.9); Neutrophils # 1.07 10^3/uL (1.8-7.7); Neutrophils % 41.1 %; Nucleated Red Blood Cells % 0 %; Platelet Count 177 10^3/cmm (130-400); Red Blood Count 2.92 10^6/uL (4.1-5.3); Red Cell Distribution Width 18.6 % (12.1-15.1); White Blood Count 2.6 10^3/uL (4.0-10.0)
[2022-08-29 05:13] LABS: Anion Gap 13.4 (5-19); Blood Urea Nitrogen 37 mg/dL (8-23); Calcium 8.1 mg/dL (8.5-10.5); Carbon Dioxide 21 mmol/L (22-29); Chloride 103 mmol/L (98-107); Glomerular Filtration Rate 22.1 mL/min (90-130); Glucose 89 mg/dL (65-115); Osmolality Calculated 284 mOsm/kg (285-295); Potassium 4.4 mmol/L (3.5-5.1); Sodium 133 mmol/L (136-145)
[2022-08-29 08:00] VITALS: BP 114/73; PULSE 83; RESP 17; TEMP 37; O2SAT 97
[2022-08-29 09:43] LABS: Lactate Dehydrogenase 198 U/L (135-225)
[2022-08-29] MEDS: enoxaparin 30 mg/0.3 mL Syringe SUBCUT (10:28)
[2022-08-29] MEDS: sodium chloride 0.9% 1,000 ML 100 ML IV ×2 (10:29→18:12)
[2022-08-29 12:00] VITALS: BP 104/66; PULSE 91; RESP 16; TEMP 37.3; O2SAT 96
--- NOTE | 2022-08-29 14:55 | PM.PN ---
Subjective Subjective: patient was seen this morning, he has no complaints, he is awaiting transfer to [place], no fever, no cough, no abdominal pain Vitals/I&O/Wt Last Vital Signs Temp 99.1 F 08/29/22 12:00 Pulse 91 08/29/22 12:00 Resp 16 08/29/22 12:00 BP 104/66 08/29/22 12:00 Pulse Ox 96 08/29/22 12:00 O2 Del Method Room Air 08/29/22 04:00 08/28/22 08/29/22 08/29/22 22:59 06:59 14:59 Intake Total 820 / 2300 958.333 / 3258.333 1600 / 1600 Balance 820 / 2300 958.333 / 3258.333 1600 / 1600 Physical Exam Const: COMMON NORMALS: no acute distress and patient oriented x3 Resp: COMMON NORMALS: normal respiratory effort, No retractions, No use of accessory muscles and clear to auscultation bilaterally AUSCULTATION: clear to auscultation bilaterally Cardio: COMMON NORMALS: regular rate, regular rhythm, S1 normal heart sound present and S2 normal heart sound present RATE: regular rate RHYTHM: regular rhythm HEART SOUNDS: S1 normal heart sound present and S2 normal heart sound present GI: COMMON NORMALS: Normal to inspection, nondistended, normoactive bowel sounds present and non-tender Extremity: COMMON NORMALS: no pedal edema Neuro: COMMON NORMALS: patient oriented x3 Psych: COMMON NORMALS: mental status grossly normal Data 08/29/22 04:20 08/29/22 04:20 Micro: Microbiology 08/26/22 12:20 Urine Culture - Final Urine,Clean Catch A&P Assessment and plan (1) Anemia: -hemoglobin 7.7, will recheck hemoglobin in afternoon -awaiting transfer to [place] Patient presents with severe symptomatic anemia, with history of symptoms of shortness of breath and syncope at home. He believes this has been going on 2 to 4 weeks at minimum. He is heme-negative in the emergency department. He has no history of blood loss. It is highly concerning this may be secondary to a bone marrow issue. Myeloma, myelodysplasia must be ruled out. There is no evidence of iron deficiency anemia on testing B12 and folate are normal. TSH is normal. LDH is normal. Haptoglobin is elevated, there is no evidence of hemolysis. Peripheral smear, additional laboratory testing including CT consistent with lymphoma He has received 4 units of packed red blood cells. We will transfuse him 1 unit today for hemoglobin of 6.7. Awaiting transfer to [facility]. He was accepted there yesterday but we are awaiting a bed. IgG and IgM levels high. Concern of monoclonal gammopathy, awaiting immunofixation Plan Abnormal chest x-ray. CT chest no significant infiltrate History of reflux. Continue Protonix Full code currently SCDs for DVT prophylaxis. Lovenox subcutaneous for DVT prophylaxis Attestations Medical Necessity Statement*: patient is awaiting transfer to [place] Diagnoses Anemia D64.9
[2022-08-29 16:00] VITALS: BP 136/75; PULSE 74; RESP 16; TEMP 37.1; O2SAT 97
[2022-08-29 16:10] LABS: Hematocrit 25.1 % (42.0-52.0); Hemoglobin 7.8 g/dL (11.7-16.6)
[2022-08-29 20:00] VITALS: BP 134/76; PULSE 82; RESP 18; TEMP 36.8; O2SAT 97
[2022-08-30] VITALS: BP 117/71; PULSE 87; RESP 16; TEMP 37.2; O2SAT 97
[2022-08-30 04:00] VITALS: BP 117/69; PULSE 94; RESP 17; TEMP 37.4; O2SAT 96
[2022-08-30] MEDS: sodium chloride 0.9% 1,000 ML 100 ML IV ×2 (05:20→16:20)
[2022-08-30 05:37] LABS: Basophils % 0.4 %; Hemoglobin 7.3 g/dL (11.7-16.6); Lymphocytes # 1.1 10^3/uL (0.8-4.8); Lymphocytes % 43.6 %; Mean Corpuscular HGB Conc 30.4 g/dL (30.0-36.0); Mean Corpuscular Hemoglobin 25.5 pg (28.0-34.0); Mean Corpuscular Volume 83.9 fl (80-94); Mean Platelet Volume 8.2 fL (7.4-10.4); Monocytes # 0.3 10^3/uL (0.2-0.9); Monocytes % 10.3 %; Neutrophils % 45.3 %; Nucleated Red Blood Cells % 0 %; Platelet Count 165 10^3/cmm (130-400); Red Blood Count 2.86 10^6/uL (4.1-5.3); Red Cell Distribution Width 18.5 % (12.1-15.1); White Blood Count 2.4 10^3/uL (4.0-10.0)
[2022-08-30 05:55] LABS: Alanine Aminotransferase 7 U/L (0-41); Albumin Level 2.9 g/dL (3.5-5.2); Alkaline Phosphatase 63 U/L (40-130); Anion Gap 13.7 (5-19); Aspartate Amino Transferase 13 U/L (0-40); Blood Urea Nitrogen 36 mg/dL (8-23); Calcium 8.2 mg/dL (8.5-10.5); Carbon Dioxide 20 mmol/L (22-29); Chloride 106 mmol/L (98-107); Globulin 4.8 g/dL (1.3-4.6); Glomerular Filtration Rate 22.1 mL/min (90-130); Glucose 86 mg/dL (65-115); Osmolality Calculated 288 mOsm/kg (285-295); Potassium 4.7 mmol/L (3.5-5.1); Sodium 135 mmol/L (136-145); Total Bilirubin 0.3 mg/dL (0.15-1.2); Total Protein 7.7 g/dL (6.6-8.7)
[2022-08-30 08:00] VITALS: BP 132/82; PULSE 87; RESP 16; TEMP 37.3; O2SAT 96
[2022-08-30] MEDS: enoxaparin 30 mg/0.3 mL Syringe SUBCUT (11:29)
[2022-08-30 12:00] VITALS: BP 122/73; PULSE 86; RESP 17; TEMP 37.1; O2SAT 94
--- NOTE | 2022-08-30 15:56 | PM.PN ---
Subjective Subjective: Patient was seen this morning, awaiting placement to [facility], frustrated about the wait Vitals/I&O/Wt Last Vital Signs Temp 98.7 F 08/30/22 12:00 Pulse 86 08/30/22 12:00 Resp 17 08/30/22 12:00 BP 122/73 08/30/22 12:00 Pulse Ox 94 08/30/22 12:00 O2 Del Method Room Air 08/30/22 04:00 08/30/22 08/30/22 08/30/22 06:59 14:59 22:59 Intake Total 1480 / 4091.667 240 / 240 1000 / 1240 Balance 1480 / 4091.667 240 / 240 1000 / 1240 Physical Exam Const: COMMON NORMALS: no acute distress and patient oriented x3 Resp: COMMON NORMALS: normal respiratory effort, No retractions, No use of accessory muscles and clear to auscultation bilaterally AUSCULTATION: clear to auscultation bilaterally Cardio: COMMON NORMALS: regular rate, regular rhythm, S1 normal heart sound present and S2 normal heart sound present RATE: regular rate RHYTHM: regular rhythm HEART SOUNDS: S1 normal heart sound present and S2 normal heart sound present GI: COMMON NORMALS: Normal to inspection, nondistended, normoactive bowel sounds present and non-tender Extremity: COMMON NORMALS: no pedal edema Neuro: COMMON NORMALS: patient oriented x3 Psych: COMMON NORMALS: mental status grossly normal Data 08/30/22 05:04 08/30/22 05:04 Micro: Microbiology 08/26/22 12:20 Urine Culture - Final Urine,Clean Catch A&P Assessment and plan (1) Anemia: -hemoglobin 7.3, will recheck hemoglobin in afternoon -awaiting transfer to [facility] Patient presents with severe symptomatic anemia, with history of symptoms of shortness of breath and syncope at home. He believes this has been going on 2 to 4 weeks at minimum. He is heme-negative in the emergency department. He has no history of blood loss. It is highly concerning this may be secondary to a bone marrow issue. Myeloma, myelodysplasia must be ruled out. There is no evidence of iron deficiency anemia on testing B12 and folate are normal. TSH is normal. LDH is normal. Haptoglobin is elevated, there is no evidence of hemolysis. Peripheral smear, additional laboratory testing including CT consistent with lymphoma He has received 4 units of packed red blood cells. We will transfuse him 1 unit today for hemoglobin of 6.7. Awaiting transfer to [facility]. He was accepted there yesterday but we are awaiting a bed. IgG and IgM levels high. Concern of monoclonal gammopathy, awaiting immunofixation Plan Abnormal chest x-ray. CT chest no significant infiltrate History of reflux. Continue Protonix Full code currently SCDs for DVT prophylaxis. Lovenox subcutaneous for DVT prophylaxis Attestations Medical Necessity Statement*: Patient requires transfer to [facility], for anemia, concerning for lymphoma Diagnoses Anemia D64.9
[2022-08-30 16:00] VITALS: BP 128/76; PULSE 74; RESP 17; TEMP 36.3; O2SAT 99
[2022-08-30 16:36] LABS: Hematocrit 26.1 % (42.0-52.0); Hemoglobin 7.9 g/dL (11.7-16.6)
[2022-08-30 20:00] VITALS: BP 141/82; PULSE 85; RESP 17; TEMP 37.1; O2SAT 98
[2022-08-31] VITALS: BP 131/72; PULSE 75; RESP 17; TEMP 36.7; O2SAT 97
[2022-08-31] MEDS: sodium chloride 0.9% 1,000 ML 100 ML IV (02:27)
[2022-08-31 04:00] VITALS: BP 120/55; PULSE 75; RESP 18; TEMP 36.8; O2SAT 98
[2022-08-31 05:24] LABS: Basophils % 0.4 %; Hematocrit 24.1 % (42.0-52.0); Hemoglobin 7.4 g/dL (11.7-16.6); Lymphocytes # 1.1 10^3/uL (0.8-4.8); Lymphocytes % 43.5 %; Mean Corpuscular HGB Conc 30.7 g/dL (30.0-36.0); Mean Corpuscular Hemoglobin 25.8 pg (28.0-34.0); Mean Platelet Volume 8.1 fL (7.4-10.4); Monocytes # 0.3 10^3/uL (0.2-0.9); Monocytes % 10.5 %; Neutrophils # 1.11 10^3/uL (1.8-7.7); Neutrophils % 44.8 %; Nucleated Red Blood Cells % 0 %; Platelet Count 145 10^3/cmm (130-400); Red Blood Count 2.87 10^6/uL (4.1-5.3); Red Cell Distribution Width 18.4 % (12.1-15.1); White Blood Count 2.5 10^3/uL (4.0-10.0)
[2022-08-31 05:36] LABS: Alanine Aminotransferase 7 U/L (0-41); Alkaline Phosphatase 73 U/L (40-130); Anion Gap 11.7 (5-19); Aspartate Amino Transferase 14 U/L (0-40); Blood Urea Nitrogen 38 mg/dL (8-23); Calcium 8.1 mg/dL (8.5-10.5); Carbon Dioxide 20 mmol/L (22-29); Chloride 105 mmol/L (98-107); Glomerular Filtration Rate 25.1 mL/min (90-130); Glucose 95 mg/dL (65-115); Osmolality Calculated 283 mOsm/kg (285-295); Potassium 4.7 mmol/L (3.5-5.1); Sodium 132 mmol/L (136-145); Total Bilirubin 0.3 mg/dL (0.15-1.2)
--- NOTE | 2022-08-31 05:54 | PC.NURSE ---
call received from [facility] stating room is available for patient, spoke with Nara Hooper RN, [place] [id number], report to be called to phone number [phone]
--- NOTE | 2022-08-31 07:30 | PC.NURSE ---
report given to Mariana Palacio RN at [facility]. contact number [phone],
[2022-08-31 07:54] VITALS: BP 126/76; PULSE 80; RESP 18; TEMP 36.6; O2SAT 97
[2022-08-31] MEDS: enoxaparin 30 mg/0.3 mL Syringe SUBCUT (08:27)
--- NOTE | 2022-08-31 10:38 | P.TS_ITS ---
Transfer Summary Providers Date of Admission: 08/26/22 13:16 Date of Discharge/Transfer: 08/31/22 Attending Provider at Admission: Peter Price MD Attending Provider at Transfer: Derrick Sales MD Primary Care Provider: Jimi Wagner MD Transfer Plans: Anticipated date of transfer: 08/31/22 . Diagnoses at Discharge Discharge Diagnosis (1) Anemia: Status: Acute (2) Leukopenia: Status: Acute (3) Acute kidney injury: Status: Acute Reason for Visit Reason for Visit abnormal labs Hospital Course Hospital Course Werner is a 62-year-old white male who presented to the hospital with shortness of breath, syncopal episode a week ago at the instruction of a primary care provider he saw the previous day. On that day he had a CBC drawn, that came back with significant anemia. In the emergency department this was confirmed, with a hemoglobin of 4.7. Considering the patient had severe anemia, that was symptomatic 2 units of packed red blood cells were ordered. Calcium, albumin were normal. Liver function tests, LDH was normal. Globulin slightly high. Peripheral smear was concerning for abnormal plasma lymphocyte cells. Initial creatinine 3.0, urinalysis unimpressive other than 40-50 red blood cells. No significant proteinuria. CT scan chest/abdomen/pelvis demonstrated some enlarged lymph nodes, no evidence of renal obstruction, and some splenomegaly. I consulted hematology, and immunoglobulin levels were obtained. IgG and IgM were elevated at 2291 and 17 8 8 respectively. Immunofixation, lymphoma panel, free kappa lambda chain assays were all ordered. Other studies such as TSH, folate, B12, iron saturation were all normal. Repeat hemoglobin following 2 units of blood was 6.2 so 2 units more were ordered. He also received IV fluids. The following day his hemoglobin was 7.2, white blood cell count 2.6 with an ANC of 1700, and a platelet count of 202,000. Repeat creatinine was 3.1. I have visited with oncology who believed that he would be best served by going to a tertiary care center. This was arranged at [place], under the care of Dr. Guerrero. Benefits and risks of transfer were discussed. Family had an opportunity ask questions and agreed with the plan. 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 Uric acid level was also checked and normal. Physical Exam Narrative: General exam no distress Neck is supple Cardiovascular regular rate and rhythm Lungs clear Abdomen is soft, nontender Extremities no cyanosis clubbing or edema Skin without rash TS Data Studies Completed and Pending Pending at discharge Category Date Time Status Complete Blood Count w/Auto AM LABS Lab 09/01/22 04:00 Ordered Comprehensive Metabolic Panel AM LABS Lab 09/01/22 04:00 Ordered Irradiated Leuko Red RBC Routine Lab 08/26/22 10:10 Results Retype for Pat[place] ABO/Rh Routine Lab 08/26/22 10:10 Results Labs from last 24 hours 08/31/22 08/31/22 08/30/22 05:04 05:04 15:58 WBC 2.5 L RBC 2.87 L Hgb 7.4 L 7.9 L Hct 24.1 L 26.1 L MCV 84.0 MCH 25.8 L MCHC 30.7 RDW 18.4 H Plt Count 145 MPV 8.1 Neut % (Auto) 44.8 Lymph % (Auto) 43.5 [place] % (Auto) 10.5 Eos % (Auto) 0.0 Baso % (Auto) 0.4 Neut # (Auto) 1.11 L Lymph # (Auto) 1.1 [place] # (Auto) 0.3 Eos # (Auto) 0.0 Baso # (Auto) 0.0 Nucleated RBC % (auto) 0 Nucleated RBCs # 0.0 Sodium 132 L Potassium 4.7 Chloride 105 Carbon Dioxide 20 L Anion Gap 11.7 BUN 38 H Creatinine 2.6 H GFR Calculation 25.1 L Glucose 95 Calculated Osmolality 283 L Calcium 8.1 L Total Bilirubin 0.3 AST 14 ALT 7 Alkaline Phosphatase 73 Total Protein 8.0 Albumin 3.0 L Globulin 5.0 H Completed Studies During Hospitalization Category Date Time Status CT chest abdomen pelvis [[place] [id number] Cat Scan 08/26/22 11:57 Completed ] Stat Laboratory Last Values WBC 2.5 10^3/uL (4.0-10.0) L 08/31/22 05:04 RBC 2.87 10^6/uL (4.1-5.3) L 08/31/22 05:04 Hgb 7.4 g/dL (11.7-16.6) L 08/31/22 05:04 Hct 24.1 % (42.0-52.0) L 08/31/22 05:04 MCV 84.0 fl (80-94) 08/31/22 05:04 MCH 25.8 pg (28.0-34.0) L 08/31/22 05:04 MCHC 30.7 g/dL (30.0-36.0) 08/31/22 05:04 RDW 18.4 % (12.1-15.1) H 08/31/22 05:04 Plt Count 145 10^3/cmm (130-400) 08/31/22 05:04 MPV 8.1 fL (7.4-10.4) 08/31/22 05:04 Neut % (Auto) 44.8 % 08/31/22 05:04 Lymph % (Auto) 43.5 % 08/31/22 05:04 [place] % (Auto) 10.5 % 08/31/22 05:04 Eos % (Auto) 0.0 % 08/31/22 05:04 Baso % (Auto) 0.4 % 08/31/22 05:04 Neut # (Auto) 1.11 10^3/uL (1.8-7.7) L 08/31/22 05:04 Lymph # (Auto) 1.1 10^3/uL (0.8-4.8) 08/31/22 05:04 [place] # (Auto) 0.3 10^3/uL (0.2-0.9) 08/31/22 05:04 Eos # (Auto) 0.0 10^3/uL (0.0-0.8) 08/31/22 05:04 Baso # (Auto) 0.0 10^3/uL (0.0-0.1) 08/31/22 05:04 Nucleated RBC % (auto) 0 % 08/31/22 05:04 Nucleated RBCs # 0.0 /100WBC 08/31/22 05:04 ESR 36 mm/hr (0-10) H 08/26/22 09:25 Haptoglobin 268.0 mg/L (30-200) H 08/26/22 09:25 Sodium 132 mmol/L (136-145) L 08/31/22 05:04 Potassium 4.7 mmol/L (3.5-5.1) 08/31/22 05:04 Chloride 105 mmol/L (98-107) 08/31/22 05:04 Carbon Dioxide 20 mmol/L (22-29) L 08/31/22 05:04 Anion Gap 11.7 (5-19) 08/31/22 05:04 BUN 38 mg/dL (8-23) H 08/31/22 05:04 Creatinine 2.6 mg/dL (0.7-1.2) H 08/31/22 05:04 GFR Calculation 25.1 mL/min (90-130) L 08/31/22 05:04 Glucose 95 mg/dL (65-115) 08/31/22 05:04 Calculated Osmolality 283 mOsm/kg (285-295) L 08/31/22 05:04 Uric Acid 5.0 mg/dL (3.4-7.0) 08/29/22 04:20 Calcium 8.1 mg/dL (8.5-10.5) L 08/31/22 05:04 Iron 99 ug/dL (59-158) 08/26/22 09:25 TIBC 200 mcg/dl 08/26/22 09:25 % Saturation 49.5 % (20-50) 08/26/22 09:25 Unsat Iron Binding 101 ug/dL (112-347) L 08/26/22 09:25 Ferritin 313 ng/mL (30-400) 08/26/22 09:25 Total Bilirubin 0.3 mg/dL (0.15-1.2) 08/31/22 05:04 Direct Bilirubin 0.20 mg/dL (0.00-0.30) 08/26/22 09:25 AST 14 U/L (0-40) 08/31/22 05:04 ALT 7 U/L (0-41) 08/31/22 05:04 Alkaline Phosphatase 73 U/L (40-130) 08/31/22 05:04 Lactate Dehydrogenase 198 U/L (135-225) 08/29/22 04:20 Creatine Kinase 78 U/L (39-308) 08/26/22 09:25 Total Protein 8.0 g/dL (6.6-8.7) 08/31/22 05:04 Albumin 3.0 g/dL (3.5-5.2) L 08/31/22 05:04 Globulin 5.0 g/dL (1.3-4.6) H 08/31/22 05:04 Qtwtr-0-Ipicjfipq 0.4 g/dL (0.2-0.3) H 08/26/22 14:25 Ofgin-4-Hehhneeqm 0.8 g/dL (0.5-0.9) 08/26/22 14:25 Jdcc-7-Wdftvegv 0.5 g/dL (0.4-0.6) 08/26/22 14:25 Oluj-4-Laxudplg 0.5 g/dL (0.2-0.5) 08/26/22 14:25 Gamma Globulins 3.3 g/dL (0.8-1.7) H 08/26/22 14:25 Abnorm Protein Band 1 1.7 g/dL (NONE DETECTED) H 08/26/22 14:25 Vitamin B12 300 pg/mL (232-1245) 08/26/22 09:25 Folate 16.2 ng/mL (4.5-32.2) 08/26/22 09:25 TSH 3.89 uIU/mL (0.27-4.20) 08/26/22 09:25 Urine Color Yellow (Yellow) 08/26/22 12:20 Urine Appearance Clear (CLEAR) 08/26/22 12:20 Urine pH 6.5 (5-7) 08/26/22 12:20 Ur Specific [place] 1.010 (1.005-1.030) 08/26/22 12:20 Urine Protein Trace (Negative) 08/26/22 12:20 Urine Glucose (UA) Norm (Normal) 08/26/22 12:20 Urine Ketones Negative (Negative) 08/26/22 12:20 Urine Blood 3+ (Negative) H 08/26/22 12:20 Urine Nitrate Negative (Negative) 08/26/22 12:20 Urine Bilirubin Neg (Negative) 08/26/22 12:20 Urine Urobilinogen Neg mg/dL (Negative) 08/26/22 12:20 Ur Leukocyte Esterase Negative (Negative) 08/26/22 12:20 Urine RBC 40-50 /hpf (0-2) H 08/26/22 12:20 Urine WBC 0-4 /hpf (0-5) H 08/26/22 12:20 Ur Squamous Epith Cells 0-4 /hpf (0-5) H 08/26/22 12:20 Amorphous Sediment Not Reportable 08/26/22 12:20 Urine Bacteria Trace /hpf (NONE) 08/26/22 12:20 Urine Mucus Trace /hpf 08/26/22 12:20 U Abnormal Prot Band 2 Not Reportable 08/26/22 14:25 U Abnormal Prot Band 3 Not Reportable 08/26/22 14:25 IgG 2291 mg/dL (700-1600) H 08/26/22 09:25 IgA 297 mg/dL (70-400) 08/26/22 09:25 IgM 1788 mg/dL (40-230) H 08/26/22 09:25 Pro Electrophoresis Int See note 08/26/22 14:25 Serum Immunofixation See note 08/26/22 14:25 Lymphoma Panel See report 08/26/22 09:25 Immunophenotype Interp See report 08/26/22 09:25 Free [place] Light Chains 191.1 mg/L (3.3-19.4) H 08/26/22 14:25 Free Lambda Light Chain 116.4 mg/L (5.7-26.3) H 08/26/22 14:25 Free Low [place]/Lambda Ratio 1.64 (0.26-1.65) 08/26/22 14:25 Blood Type O Positive 08/26/22 09:25 Rho(D) Type Positive 08/26/22 09:25 Antibody Screen Negative 08/26/22 09:25 Crossmatch See Detail 08/26/22 09:25 Radiology Impressions Chest/Abdomen/Pelvis CT 08/26/22 11:57 IMPRESSION: 1. Both lungs are well aerated. No acute pulmonary infiltrates. 2. Marked splenomegaly measuring 17.1 x 7.1 CM. Mild hepatomegaly. 3. Mild enlargement periaortic, aortocaval and proximal iliac lymph nodes the largest measuring approximately 1.7 cm. 4. Prominent pelvic iliac lymph nodes and RIGHT common femoral lymph node although difficult to delineate without contrast. Mild enlargement bilateral inguinal lymph nodes. 5. Recommend Correlation for lymphoma. 6. Numerous axillary lymph nodes although not pathologically enlarged. 7. 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 Recent Clincial Data Last Vital Signs Temp 97.9 F 08/31/22 07:54 Pulse 80 08/31/22 07:54 Resp 18 08/31/22 07:54 BP 126/76 08/31/22 07:54 Pulse Ox 97 08/31/22 07:54 O2 Del Method Room Air 08/31/22 07:54 Vital Signs Temp Pulse Resp BP Pulse Ox O2 Del Method 08/31/22 07:54 97.9 F 80 18 126/76 97 Room Air 08/31/22 04:00 98.2 F 75 18 120/55 98 Room Air 08/31/22 00:00 98.1 F 75 17 131/72 97 Room Air Intake & Output/Weight 08/29/22 08/30/22 08/31/22 09/01/22 06:59 06:59 06:59 06:59 Intake Total 3258.333 / 3258.333 4091.667 / 4091.667 3440 / 3440 360 / 360 Balance 3258.333 / 3258.333 4091.667 / 4091.667 3440 / 3440 360 / 360 Vitals Last Vital Signs Temp 97.9 F 08/31/22 07:54 Pulse 80 08/31/22 07:54 Resp 18 08/31/22 07:54 BP 126/76 08/31/22 07:54 Pulse Ox 97 08/31/22 07:54 O2 Del Method Room Air 08/31/22 07:54 TS Medications Medications Acetaminophen (Acetaminophen 325 Mg Tablet) 650 mg PO Q6H PRN PRN Reason: Mild/Mod Pain Or Temp >/= 101 Enoxaparin Sodium (Enoxaparin 30 Mg/0.3 Ml Syringe) 30 mg SUBCUT Q24H [facility] Last Admin: 08/31/22 08:27 Dose: 30 mg Sodium Chloride (Sodium Chloride 0.9%) 1,000 mls @ 100 mls/hr IV .Q10H [facility] Last Admin: 08/31/22 02:27 Dose: 100 mls/hr Ondansetron HCl (Ondansetron 2 Mg/Ml Sdv 2 Ml) 4 mg IVP Q6H PRN PRN Reason: vomiting, or N/V if npo Discontinued Medications Acetaminophen (Acetaminophen 325 Mg Tablet) 650 mg PO ONCE ONE Stop: 08/26/22 09:18 Last Admin: 08/26/22 11:06 Dose: 650 mg Enoxaparin Sodium (Enoxaparin 40 Mg/0.4 Ml Syringe) 40 mg SUBCUT Q24H [facility] Last Admin: 08/28/22 10:03 Dose: 40 mg Sodium Chloride (Sodium Chloride 0.9% (100 Ml)) Confirm Administered Dose 100 mls @ as directed .ROUTE .STK-MED ONE Stop: 08/28/22 09:55 Last Infusion: 08/28/22 22:33 Dose: Infused Sodium Chloride (Sodium Chloride 0.9% 100 Ml Bag) 50 ml IV PRN PRN PRN Reason: Blood transfusion prime and flush Stop: 08/27/22 09:20 Last Admin: 08/26/22 13:27 Dose: 50 ml Sodium Chloride (Sodium Chloride 0.9% 100 Ml Bag) 50 ml IV PRN PRN PRN Reason: Blood transfusion prime and flush Stop: 08/27/22 14:52 Sodium Chloride (Sodium Chloride 0.9% 100 Ml Bag) 50 ml IV PRN PRN PRN Reason: Blood transfusion prime and flush Stop: 08/29/22 07:15 Allergies No Known Allergies Allergy (Verified 08/26/22 09:18) Home Medications albuterol sulfate 90 mcg/actuation aerosol inhaler 1 puff inhalation Q6H PRN Wheezing 08/26/22 [History Confirmed 08/26/22] amoxicillin 875 mg-potassium clavulanate 125 mg tablet 1 tab PO BID 08/26/22 [History Confirmed 08/26/22] prednisone 20 mg tablet 20 mg PO BID 08/26/22 [History Confirmed 08/26/22] Discharge Plan Discharge Patient Disposition: Xfer Short-Term Hosp Condition: Stable Prescriptions: No Action prednisone 20 mg tablet 20 mg PO BID Rx Instructions: for 5 days (rx filled 08/25/22) albuterol sulfate 90 mcg/actuation HFA aerosol inhaler 1 puff INHALATION Q6H PRN (Reason: Wheezing) amoxicillin-pot clavulanate 875-125 mg tablet 1 tab PO BID Rx Instructions: for 7 days (rx filled 08/25/22) Discharge Orders: Transfer Out of Facility (Order); Ordered 08/27/22 Ordered By: Peter Price Referrals: Jimi Wagner MD [Primary Care Provider] - Transfer Attestations Time Spent in Transfer Care: greater than 30 min Specific Discharge Activities: educating patient, discussing with pcp/other providers, discussing with case aide/social workers/dc planners, documenting/other paperwork and evaluating patient/reviewing data Status at Transfer: Cognitive status at transfer: cognitively intact ; Behavioral status at transfer: cooperative ; Functional status at transfer: independent ambulation ; Overall status at transfer: patient is back to baseline Quality Metrics Clinical Quality Measures [ No reported AMI, CVA or VTE this stay] Coding Level of Care Code 79772 Total time (in minutes) for Discharge: 60 Diagnoses Anemia D64.9 Leukopenia D72.819 Acute kidney injury N17.9
[2022-08-31 10:49] VITALS: BP 126/76; PULSE 80; RESP 18; O2SAT 97
== END 2022-08-31 10:50 | disposition short-term general hospital (02) ==
LOC: ER 09:07 → MEDSURG 13:17
PROVIDERS: Family Medicine; Admitting Provider Internal Medicine; Emergency Provider Emergency Medicine; PCP Family Medicine; Visit Provider Student in an Organized Health Care Education/Training Program
DX: D64.9 Anemia, unspecified (principal); N17.9 Acute kidney failure, unspecified; R16.1 Splenomegaly, not elsewhere classified; R59.1 Generalized enlarged lymph nodes; D72.819 Decreased white blood cell count, unspecified
CPT/HCPCS: 36415; 36430; 71250; 74176; 80048; 80053; 80076; 80503; 81001; 82274; 82550; 82607; 82728; 82746; 82784; 83010; 83540; 83550; 83615; 83883; 84155; 84165; 84443; 84550; 85014; 85018; 85025; 85651; 86334; 86850; 86900; 86920; 87086; 88184; 88185; 96360; 96361; 96372; 99285; G0378; J1650; J7030; P9016; P9040

== ENCOUNTER 2022-10-08 08:00 | Oncology outpatient (recurring) (ONCR) | payer OTHER, SELFPAY ==
[2022-09-28 07:50] VITALS: BP 101/68; PULSE 106; RESP 16; TEMP 36.4; O2SAT 98
[2022-09-28 08:10] LABS: Basophils % 0.4 %; Hemoglobin 9.1 g/dL (11.7-16.6); Lymphocytes # 1.1 10^3/uL (0.8-4.8); Mean Corpuscular HGB Conc 31.4 g/dL (30.0-36.0); Mean Corpuscular Hemoglobin 26.2 pg (28.0-34.0); Mean Corpuscular Volume 83.6 fl (80-94); Mean Platelet Volume 8.8 fL (7.4-10.4); Monocytes # 0.3 10^3/uL (0.2-0.9); Monocytes % 9.7 %; Neutrophils # 1.39 10^3/uL (1.8-7.7); Neutrophils % 50.2 %; Nucleated Red Blood Cells % 0 %; Platelet Count 237 10^3/cmm (130-400); Red Blood Count 3.47 10^6/uL (4.1-5.3); Red Cell Distribution Width 17.1 % (12.1-15.1); White Blood Count 2.8 10^3/uL (4.0-10.0)
[2022-09-28 08:53] LABS: Alanine Aminotransferase 16 U/L (0-41); Albumin Level 3.4 g/dL (3.5-5.2); Alkaline Phosphatase 83 U/L (40-130); Aspartate Amino Transferase 22 U/L (0-40); Blood Urea Nitrogen 29 mg/dL (8-23); Calcium 8.8 mg/dL (8.5-10.5); Carbon Dioxide 25 mmol/L (22-29); Chloride 100 mmol/L (98-107); Globulin 4.7 g/dL (1.3-4.6); Glomerular Filtration Rate 26.2 mL/min (90-130); Glucose 112 mg/dL (65-115); Immunoglobulin IGA 234 mg/dL (70-400); Immunoglobulin IGG 1561 mg/dL (700-1600); Osmolality Calculated 295 mOsm/kg (285-295); Sodium 139 mmol/L (136-145); Total Bilirubin 0.3 mg/dL (0.15-1.2); Total Protein 8.1 g/dL (6.6-8.7)
[2022-09-28 08:58] LABS: Lactate Dehydrogenase 192 U/L (135-225)
[2022-09-28 09:11] LABS: Immunoglobulin IGM 1735 mg/dL (40-230)
[2022-09-28] MEDS: dexamethasone 4 mg Tablet 40 MG PO (09:53)
[2022-09-28] MEDS: acetaminophen 325 mg Tablet 650 MG PO (09:54)
[2022-09-28] MEDS: ondansetron 4 MG Tablet 8 MG PO (09:54)
[2022-09-28] MEDS: sodium chloride 0.9% 500 ML 75 ML IV (09:57)
[2022-09-28] MEDS: diphenhydrAMINE 50 mg/mL SDV 1mL 25 MG IVP (09:58)
[2022-09-28 10:35] VITALS: BP 119/66; PULSE 72; RESP 16; TEMP 36.6; O2SAT 98
[2022-09-28 11:05] VITALS: BP 110/71; PULSE 79; RESP 16; TEMP 36.6; O2SAT 98
[2022-09-28 11:35] VITALS: BP 111/66; PULSE 92; RESP 16; TEMP 35.9; O2SAT 96
[2022-09-28 12:05] VITALS: BP 120/74; PULSE 92; RESP 16; TEMP 36.1; O2SAT 96
[2022-09-28] MEDS: bortezomib 3.5 mg SDV 2.5 MG SUBCUT (12:57)
[2022-09-28 13:15] VITALS: BP 132/72; PULSE 113; RESP 16; TEMP 36.1; O2SAT 98
[2022-09-29 09:39] LABS: PROTEIN, TOTAL 7.7 g/dL (6.1-8.1)
[2022-09-29 15:11] LABS: ABNORMAL PROTEIN BAND 1 1.5 g/dL (NONE DETECTED); ALBUMIN 3.1 g/dL (3.8-4.8); ALPHA 1 GLOBULIN 0.4 g/dL (0.2-0.3); ALPHA 2 GLOBULIN 0.8 g/dL (0.5-0.9); BETA 1 GLOBULIN 0.4 g/dL (0.4-0.6); BETA 2 GLOBULIN 0.4 g/dL (0.2-0.5); GAMMA GLOBULIN 2.5 g/dL (0.8-1.7)
[2022-10-01 08:10] VITALS: BP 103/57; PULSE 99; RESP 18; TEMP 36.2; O2SAT 99
[2022-10-01] MEDS: dexamethasone 4 mg Tablet 40 MG PO (08:10)
[2022-10-01] MEDS: ondansetron 4 MG Tablet 8 MG PO (08:11)
[2022-10-01] MEDS: bortezomib 3.5 mg SDV 2.5 MG SUBCUT (08:33)
[2022-10-05 08:21] VITALS: BP 124/72; PULSE 113; RESP 18; TEMP 36.7; O2SAT 99
[2022-10-05 08:31] LABS: Eosinophils % 0.4 %; Hematocrit 28.5 % (42.0-52.0); Hemoglobin 8.9 g/dL (11.7-16.6); Lymphocytes # 0.8 10^3/uL (0.8-4.8); Lymphocytes % 33.3 %; Mean Corpuscular HGB Conc 31.2 g/dL (30.0-36.0); Mean Corpuscular Hemoglobin 26.7 pg (28.0-34.0); Mean Corpuscular Volume 85.6 fl (80-94); Monocytes # 0.2 10^3/uL (0.2-0.9); Monocytes % 8.4 %; Neutrophils # 1.41 10^3/uL (1.8-7.7); Neutrophils % 56.7 %; Nucleated Red Blood Cells % 0 %; Platelet Count 209 10^3/cmm (130-400); Red Blood Count 3.33 10^6/uL (4.1-5.3); Red Cell Distribution Width 17.8 % (12.1-15.1); White Blood Count 2.5 10^3/uL (4.0-10.0)
[2022-10-05 08:52] LABS: Alanine Aminotransferase 9 U/L (0-41); Albumin Level 3.2 g/dL (3.5-5.2); Alkaline Phosphatase 69 U/L (40-130); Anion Gap 14.8 (5-19); Aspartate Amino Transferase 12 U/L (0-40); Blood Urea Nitrogen 38 mg/dL (8-23); Calcium 8.3 mg/dL (8.5-10.5); Carbon Dioxide 24 mmol/L (22-29); Chloride 102 mmol/L (98-107); Globulin 4.2 g/dL (1.3-4.6); Glomerular Filtration Rate 27.5 mL/min (90-130); Glucose 138 mg/dL (65-115); Osmolality Calculated 295 mOsm/kg (285-295); Potassium 3.8 mmol/L (3.5-5.1); Sodium 137 mmol/L (136-145); Total Bilirubin 0.3 mg/dL (0.15-1.2); Total Protein 7.4 g/dL (6.6-8.7)
[2022-10-05] MEDS: dexamethasone 4 mg Tablet 40 MG PO (09:39)
[2022-10-05] MEDS: ondansetron 4 MG Tablet 8 MG PO (09:39)
[2022-10-05] MEDS: bortezomib 3.5 mg SDV 2.5 MG SUBCUT (09:54)
--- NOTE | 2022-10-05 11:40 | PC.NURSE ---
patient given education on constipation, notified that Ronna RN was to call in meds for him to his pharmacy, and patient encouraged to call the office if constipation continues after trying new meds. Patient verbalizes understanding.
[2022-10-08 07:50] VITALS: BP 117/73; PULSE 109; RESP 18; TEMP 35.9; O2SAT 99
[2022-10-08 08:02] LABS: Hematocrit 30.3 % (42.0-52.0); Hemoglobin 9.6 g/dL (11.7-16.6); Lymphocytes # 0.9 10^3/uL (0.8-4.8); Lymphocytes % 23.7 %; Mean Corpuscular HGB Conc 31.7 g/dL (30.0-36.0); Mean Corpuscular Hemoglobin 27.3 pg (28.0-34.0); Mean Corpuscular Volume 86.1 fl (80-94); Mean Platelet Volume 9.3 fL (7.4-10.4); Monocytes # 0.3 10^3/uL (0.2-0.9); Nucleated Red Blood Cells % 0 %; Platelet Count 215 10^3/cmm (130-400); Red Blood Count 3.52 10^6/uL (4.1-5.3); Red Cell Distribution Width 18.4 % (12.1-15.1); White Blood Count 3.9 10^3/uL (4.0-10.0)
[2022-10-08 08:23] LABS: Alanine Aminotransferase 11 U/L (0-41); Albumin Level 3.2 g/dL (3.5-5.2); Alkaline Phosphatase 72 U/L (40-130); Anion Gap 14.6 (5-19); Aspartate Amino Transferase 13 U/L (0-40); Blood Urea Nitrogen 42 mg/dL (8-23); Calcium 8.4 mg/dL (8.5-10.5); Carbon Dioxide 27 mmol/L (22-29); Chloride 100 mmol/L (98-107); Globulin 4.1 g/dL (1.3-4.6); Glomerular Filtration Rate 26.2 mL/min (90-130); Glucose 110 mg/dL (65-115); Osmolality Calculated 297 mOsm/kg (285-295); Potassium 3.6 mmol/L (3.5-5.1); Sodium 138 mmol/L (136-145); Total Bilirubin 0.2 mg/dL (0.15-1.2); Total Protein 7.3 g/dL (6.6-8.7)
[2022-10-08] MEDS: dexamethasone 4 mg Tablet 40 MG PO (08:54)
[2022-10-08] MEDS: ondansetron 4 MG Tablet 8 MG PO (08:55)
[2022-10-08] MEDS: bortezomib 3.5 mg SDV 2.5 MG SUBCUT (09:24)
[2022-10-08 09:35] VITALS: BP 104/66; PULSE 109; PULSE 88; RESP 18; TEMP 36.5; O2SAT 99
== END 2022-10-14 23:59 | disposition home or self-care (01) ==
PROVIDERS: PCP Family Medicine; Visit Provider Internal Medicine Medical Oncology
DX: Z51.11 Encounter for antineoplastic chemotherapy (principal); C88.0 Waldenstrom macroglobulinemia
CPT/HCPCS: 36415; 80053; 82784; 83615; 84155; 84165; 85025; 96375; 96401; 96402; 96413; 96415; J1200; J7040; J8540; J9041; Q0162; Q5115

== ENCOUNTER 2022-10-19 07:46 | Oncology outpatient (recurring) (ONCR) | payer OTHER, SELFPAY ==
[2022-10-19 08:12] VITALS: BP 122/62; PULSE 95; RESP 18; TEMP 36.8; O2SAT 99
[2022-10-19 08:29] LABS: Hematocrit 25.6 % (42.0-52.0); Hemoglobin 8.1 g/dL (11.7-16.6); Lymphocytes # 0.9 10^3/uL (0.8-4.8); Lymphocytes % 29.2 %; Mean Corpuscular HGB Conc 31.6 g/dL (30.0-36.0); Mean Corpuscular Hemoglobin 27.1 pg (28.0-34.0); Mean Corpuscular Volume 85.6 fl (80-94); Mean Platelet Volume 8.6 fL (7.4-10.4); Monocytes # 0.3 10^3/uL (0.2-0.9); Monocytes % 9.2 %; Neutrophils % 60.3 %; Nucleated Red Blood Cells % 0 %; Platelet Count 213 10^3/cmm (130-400); Red Blood Count 2.99 10^6/uL (4.1-5.3); Red Cell Distribution Width 18.1 % (12.1-15.1); White Blood Count 3.2 10^3/uL (4.0-10.0)
[2022-10-19 08:54] LABS: Alanine Aminotransferase 7 U/L (0-41); Albumin Level 3.1 g/dL (3.5-5.2); Alkaline Phosphatase 75 U/L (40-130); Anion Gap 14.7 (5-19); Aspartate Amino Transferase 13 U/L (0-40); Blood Urea Nitrogen 28 mg/dL (8-23); Calcium 8.6 mg/dL (8.5-10.5); Carbon Dioxide 25 mmol/L (22-29); Chloride 102 mmol/L (98-107); Globulin 3.9 g/dL (1.3-4.6); Glomerular Filtration Rate 27.5 mL/min (90-130); Glucose 96 mg/dL (65-115); Immunoglobulin IGA 187 mg/dL (70-400); Immunoglobulin IGG 1093 mg/dL (700-1600); Lactate Dehydrogenase 151 U/L (135-225); Osmolality Calculated 291 mOsm/kg (285-295); Potassium 3.7 mmol/L (3.5-5.1); Sodium 138 mmol/L (136-145); Total Bilirubin 0.3 mg/dL (0.15-1.2)
[2022-10-19 09:06] LABS: Immunoglobulin IGM 1409 mg/dL (40-230)
[2022-10-19] MEDS: acetaminophen 325 mg Tablet 650 MG PO (10:14)
[2022-10-19] MEDS: sodium chloride 0.9% 500 ML 100 ML IV (10:14)
[2022-10-19] MEDS: ondansetron 4 MG Tablet 8 MG PO (10:15)
[2022-10-19] MEDS: diphenhydrAMINE 50 mg/mL SDV 1mL 25 MG IVP (10:19)
[2022-10-19] MEDS: dexamethasone 4 mg Tablet 40 MG PO (10:36)
[2022-10-19 10:55] VITALS: BP 96/60; PULSE 70; TEMP 36.6; O2SAT 98
[2022-10-19 11:25] VITALS: BP 93/55; PULSE 72; TEMP 36.2; O2SAT 99
[2022-10-19 11:55] VITALS: BP 96/54; PULSE 79; TEMP 36.4; O2SAT 99
[2022-10-19 12:05] VITALS: BP 93/54; PULSE 82; TEMP 36.3; O2SAT 100
[2022-10-19] MEDS: bortezomib 3.5 mg SDV 2.5 MG SUBCUT (13:48)
[2022-10-20 13:00] LABS: PROTEIN, TOTAL 6.8 g/dL (6.1-8.1)
[2022-10-21 08:00] LABS: ABNORMAL PROTEIN BAND 1 1.2 g/dL (NONE DETECTED); ALPHA 1 GLOBULIN 0.4 g/dL (0.2-0.3); ALPHA 2 GLOBULIN 0.7 g/dL (0.5-0.9); BETA 1 GLOBULIN 0.4 g/dL (0.4-0.6); BETA 2 GLOBULIN 0.3 g/dL (0.2-0.5); GAMMA GLOBULIN 1.9 g/dL (0.8-1.7)
== END 2022-10-19 23:59 | disposition home or self-care (01) ==
PROVIDERS: PCP Family Medicine; Visit Provider Internal Medicine Medical Oncology
DX: Z51.12 Encounter for antineoplastic immunotherapy (principal); C88.0 Waldenstrom macroglobulinemia; D47.2 Monoclonal gammopathy; Z79.899 Other long term (current) drug therapy
CPT/HCPCS: 80053; 82784; 83615; 84155; 84165; 85025; 96375; 96402; 96413; 96415; J1200; J7040; J8540; J9041; Q0162; Q5115

== ENCOUNTER 2022-10-29 15:00 | Oncology outpatient (recurring) (ONCR) | payer OTHER, SELFPAY ==
[2022-10-22] MEDS: ondansetron 4 MG Tablet 8 MG PO (08:13)
[2022-10-22] MEDS: dexamethasone 4 mg Tablet 40 MG PO (08:13)
[2022-10-22 08:25] VITALS: BP 114/87; PULSE 120; O2SAT 99
[2022-10-22] MEDS: sodium chloride 0.9% 1,000 ML 999 ML IV (08:32)
[2022-10-22] MEDS: bortezomib 3.5 mg SDV 2.5 MG SUBCUT (08:37)
[2022-10-22 09:48] VITALS: BP 103/64; PULSE 98; TEMP 36.7; O2SAT 99
[2022-10-26 10:00] VITALS: BP 118/80; PULSE 108; RESP 16; TEMP 36.5; O2SAT 99
[2022-10-26] MEDS: dexamethasone 4 mg Tablet 40 MG PO (10:09)
[2022-10-26] MEDS: ondansetron 4 MG Tablet 8 MG PO (10:09)
[2022-10-26 10:18] LABS: Eosinophils % 0.3 %; Hematocrit 27.3 % (42.0-52.0); Hemoglobin 8.6 g/dL (11.7-16.6); Lymphocytes # 0.7 10^3/uL (0.8-4.8); Lymphocytes % 24.5 %; Mean Corpuscular HGB Conc 31.5 g/dL (30.0-36.0); Mean Corpuscular Hemoglobin 27.4 pg (28.0-34.0); Mean Corpuscular Volume 86.9 fl (80-94); Mean Platelet Volume 9.7 fL (7.4-10.4); Monocytes # 0.2 10^3/uL (0.2-0.9); Monocytes % 6.5 %; Nucleated Red Blood Cells % 0 %; Platelet Count 220 10^3/cmm (130-400); Red Blood Count 3.14 10^6/uL (4.1-5.3); Red Cell Distribution Width 19.1 % (12.1-15.1); White Blood Count 2.9 10^3/uL (4.0-10.0)
[2022-10-26 10:45] LABS: Alanine Aminotransferase 6 U/L (0-41); Albumin Level 3.4 g/dL (3.5-5.2); Alkaline Phosphatase 71 U/L (40-130); Anion Gap 12.8 (5-19); Aspartate Amino Transferase 14 U/L (0-40); Blood Urea Nitrogen 33 mg/dL (8-23); Calcium 8.3 mg/dL (8.5-10.5); Carbon Dioxide 27 mmol/L (22-29); Chloride 99 mmol/L (98-107); Globulin 3.8 g/dL (1.3-4.6); Glomerular Filtration Rate 28.9 mL/min (90-130); Glucose 124 mg/dL (65-115); Osmolality Calculated 289 mOsm/kg (285-295); Potassium 3.8 mmol/L (3.5-5.1); Sodium 135 mmol/L (136-145); Total Bilirubin 0.3 mg/dL (0.15-1.2); Total Protein 7.2 g/dL (6.6-8.7)
[2022-10-26] MEDS: bortezomib 3.5 mg SDV 2.5 MG SUBCUT (11:03)
[2022-10-29] MEDS: bortezomib 3.5 mg SDV 2.5 MG SUBCUT (16:02)
[2022-10-29] MEDS: dexamethasone 4 mg Tablet 40 MG PO (16:04)
[2022-10-29] MEDS: ondansetron 4 MG Tablet 8 MG PO (16:05)
== END 2022-11-13 23:59 | disposition home or self-care (01) ==
PROVIDERS: PCP Family Medicine; Visit Provider Internal Medicine Medical Oncology
DX: Z51.11 Encounter for antineoplastic chemotherapy (principal); C88.0 Waldenstrom macroglobulinemia
CPT/HCPCS: 36415; 80053; 85025; 86850; 86900; 96360; 96401; J7030; J8540; J9041; Q0162

== ENCOUNTER 2022-11-26 08:30 | Oncology outpatient (recurring) (ONCR) | payer OTHER, SELFPAY ==
[2022-11-16 08:17] VITALS: BP 149/73; PULSE 105; RESP 18; TEMP 36.9; O2SAT 97
[2022-11-16 08:31] LABS: Basophils % 0.7 %; Eosinophils # 0.1 10^3/uL (0.0-0.8); Eosinophils % 1.7 %; Hematocrit 23.2 % (42.0-52.0); Hemoglobin 7.3 g/dL (11.7-16.6); Lymphocytes # 0.9 10^3/uL (0.8-4.8); Mean Corpuscular HGB Conc 31.5 g/dL (30.0-36.0); Mean Corpuscular Hemoglobin 27.8 pg (28.0-34.0); Mean Corpuscular Volume 88.2 fl (80-94); Mean Platelet Volume 7.9 fL (7.4-10.4); Monocytes # 0.4 10^3/uL (0.2-0.9); Monocytes % 11.6 %; Neutrophils # 1.63 10^3/uL (1.8-7.7); Neutrophils % 53.7 %; Nucleated Red Blood Cells % 0 %; Platelet Count 291 10^3/cmm (130-400); Red Blood Count 2.63 10^6/uL (4.1-5.3); Red Cell Distribution Width 18.2 % (12.1-15.1)
[2022-11-16 08:49] LABS: Alanine Aminotransferase < 5 U/L (0-41); Albumin Level 3.3 g/dL (3.5-5.2); Alkaline Phosphatase 73 U/L (40-130); Anion Gap 16.5 (5-19); Aspartate Amino Transferase 11 U/L (0-40); Blood Urea Nitrogen 26 mg/dL (8-23); Carbon Dioxide 25 mmol/L (22-29); Chloride 103 mmol/L (98-107); Globulin 4.1 g/dL (1.3-4.6); Glomerular Filtration Rate 30.4 mL/min (90-130); Glucose 130 mg/dL (65-115); Lactate Dehydrogenase 156 U/L (135-225); Osmolality Calculated 299 mOsm/kg (285-295); Potassium 3.5 mmol/L (3.5-5.1); Sodium 141 mmol/L (136-145); Total Bilirubin 0.3 mg/dL (0.15-1.2); Total Protein 7.4 g/dL (6.6-8.7)
[2022-11-16] MEDS: sodium chloride 0.9% 500 ML 75 ML IV (10:29)
[2022-11-16] MEDS: acetaminophen 325 mg Tablet 650 MG PO (10:32)
[2022-11-16] MEDS: ondansetron 4 MG Tablet 8 MG PO (10:33)
[2022-11-16] MEDS: dexamethasone 4 mg Tablet 40 MG PO (10:33)
[2022-11-16] MEDS: diphenhydrAMINE 50 mg/mL SDV 1mL 25 MG IVP (10:34)
[2022-11-16 11:00] VITALS: BP 103/69; PULSE 83; RESP 18; TEMP 35.5; O2SAT 96
[2022-11-16] MEDS: bortezomib 3.5 mg SDV 2.5 MG SUBCUT (11:00)
[2022-11-16 11:30] VITALS: BP 109/71; PULSE 86; RESP 18; TEMP 36.1; O2SAT 97
[2022-11-16 12:00] VITALS: BP 123/74; PULSE 91; RESP 18; TEMP 36.1; O2SAT 98
[2022-11-16 13:47] VITALS: BP 110/63; PULSE 95; RESP 18; TEMP 36.5; O2SAT 96
[2022-11-16 13:49] VITALS: BP 113/63; PULSE 95; RESP 18; TEMP 36.5; O2SAT 96
[2022-11-17 06:55] LABS: PROTEIN, TOTAL 7.1 g/dL (6.1-8.1)
[2022-11-18 15:39] LABS: ABNORMAL PROTEIN BAND 1 1.3 g/dL (NONE DETECTED); ALBUMIN 3.1 g/dL (3.8-4.8); ALPHA 1 GLOBULIN 0.4 g/dL (0.2-0.3); ALPHA 2 GLOBULIN 0.9 g/dL (0.5-0.9); BETA 1 GLOBULIN 0.4 g/dL (0.4-0.6); BETA 2 GLOBULIN 0.3 g/dL (0.2-0.5)
[2022-11-19 08:47] VITALS: BP 120/60; PULSE 117; RESP 18; TEMP 36.4; O2SAT 99
[2022-11-19] MEDS: ondansetron 4 MG Tablet 8 MG PO (08:50)
[2022-11-19] MEDS: dexamethasone 4 mg Tablet 40 MG PO (08:51)
[2022-11-19] MEDS: bortezomib 3.5 mg SDV 2.5 MG SUBCUT (09:16)
[2022-11-19 09:25] VITALS: BP 120/78; PULSE 99; RESP 18; TEMP 36.4; O2SAT 98
[2022-11-23 08:33] VITALS: BP 119/71; PULSE 112; RESP 18; TEMP 36.6; O2SAT 98
[2022-11-23 09:03] LABS: Eosinophils % 0.3 %; Hematocrit 26.4 % (42.0-52.0); Hemoglobin 8.4 g/dL (11.7-16.6); Lymphocytes # 0.7 10^3/uL (0.8-4.8); Lymphocytes % 22.9 %; Mean Corpuscular HGB Conc 31.8 g/dL (30.0-36.0); Mean Corpuscular Hemoglobin 29.2 pg (28.0-34.0); Mean Corpuscular Volume 91.7 fl (80-94); Mean Platelet Volume 9.4 fL (7.4-10.4); Monocytes # 0.2 10^3/uL (0.2-0.9); Monocytes % 6.2 %; Neutrophils # 2.02 10^3/uL (1.8-7.7); Neutrophils % 69.2 %; Nucleated Red Blood Cells % 0 %; Platelet Count 263 10^3/cmm (130-400); Red Blood Count 2.88 10^6/uL (4.1-5.3); Red Cell Distribution Width 18.8 % (12.1-15.1); White Blood Count 2.9 10^3/uL (4.0-10.0)
[2022-11-23 09:22] LABS: Alanine Aminotransferase < 5 U/L (0-41); Albumin Level 3.3 g/dL (3.5-5.2); Alkaline Phosphatase 81 U/L (40-130); Anion Gap 12.6 (5-19); Aspartate Amino Transferase 9 U/L (0-40); Blood Urea Nitrogen 29 mg/dL (8-23); Calcium 8.6 mg/dL (8.5-10.5); Carbon Dioxide 26 mmol/L (22-29); Chloride 97 mmol/L (98-107); Globulin 3.9 g/dL (1.3-4.6); Glomerular Filtration Rate 33.9 mL/min (90-130); Glucose 144 mg/dL (65-115); Osmolality Calculated 282 mOsm/kg (285-295); Potassium 3.6 mmol/L (3.5-5.1); Sodium 132 mmol/L (136-145); Total Bilirubin 0.3 mg/dL (0.15-1.2); Total Protein 7.2 g/dL (6.6-8.7)
[2022-11-23] MEDS: ondansetron 4 MG Tablet 8 MG PO (09:51)
[2022-11-23] MEDS: dexamethasone 4 mg Tablet 40 MG PO (09:52)
[2022-11-23] MEDS: bortezomib 3.5 mg SDV 2.5 MG SUBCUT (10:16)
[2022-11-23 10:19] VITALS: BP 101/66; PULSE 97; RESP 18; TEMP 36.6; O2SAT 99
[2022-11-26 08:42] VITALS: BP 108/66; PULSE 99; RESP 18; TEMP 36.6; O2SAT 99
[2022-11-26] MEDS: dexamethasone 4 mg Tablet 40 MG PO (09:17)
[2022-11-26] MEDS: ondansetron 4 MG Tablet 8 MG PO (09:18)
[2022-11-26] MEDS: bortezomib 3.5 mg SDV 2.5 MG SUBCUT (09:22)
[2022-11-26 09:29] VITALS: BP 119/72; PULSE 105; RESP 18; O2SAT 98
== END 2022-12-14 23:59 | disposition home or self-care (01) ==
PROVIDERS: Nurse Practitioner Family; PCP Family Medicine; Visit Provider Internal Medicine Medical Oncology
DX: Z51.11 Encounter for antineoplastic chemotherapy (principal); C88.0 Waldenstrom macroglobulinemia
CPT/HCPCS: 36415; 80053; 83615; 84155; 84165; 85025; 96375; 96401; 96402; 96413; 96415; J1200; J7040; J8540; J9041; Q0162; Q5115

== ENCOUNTER 2023-01-11 07:30 | Oncology outpatient (recurring) (ONCR) | payer OTHER, SELFPAY ==
[2022-12-21 09:55] VITALS: BP 120/80; PULSE 111; RESP 18; TEMP 36.7; O2SAT 99
[2022-12-21 10:08] LABS: Basophils % 1.3 %; Eosinophils # 0.1 10^3/uL (0.0-0.8); Eosinophils % 2.2 %; Hematocrit 28.2 % (42.0-52.0); Hemoglobin 9.1 g/dL (11.7-16.6); Lymphocytes # 1.6 10^3/uL (0.8-4.8); Lymphocytes % 49.5 %; Mean Corpuscular HGB Conc 32.3 g/dL (30.0-36.0); Mean Corpuscular Hemoglobin 29.8 pg (28.0-34.0); Mean Corpuscular Volume 92.5 fl (80-94); Monocytes # 0.4 10^3/uL (0.2-0.9); Monocytes % 14.1 %; Neutrophils % 31.9 %; Nucleated Red Blood Cells % 0 %; Platelet Count 260 10^3/cmm (130-400); Red Blood Count 3.05 10^6/uL (4.1-5.3); Red Cell Distribution Width 15.9 % (12.1-15.1); White Blood Count 3.1 10^3/uL (4.0-10.0)
[2022-12-21 10:27] LABS: Alanine Aminotransferase 8 U/L (0-41); Albumin Level 3.7 g/dL (3.5-5.2); Alkaline Phosphatase 87 U/L (40-130); Anion Gap 14.9 (5-19); Aspartate Amino Transferase 14 U/L (0-40); Blood Urea Nitrogen 25 mg/dL (8-23); Carbon Dioxide 26 mmol/L (22-29); Chloride 102 mmol/L (98-107); Globulin 4.1 g/dL (1.3-4.6); Glomerular Filtration Rate 32.1 mL/min (90-130); Glucose 120 mg/dL (65-115); Immunoglobulin IGA 182 mg/dL (70-400); Immunoglobulin IGG 1205 mg/dL (700-1600); Osmolality Calculated 294 mOsm/kg (285-295); Potassium 3.9 mmol/L (3.5-5.1); Sodium 139 mmol/L (136-145); Total Bilirubin 0.3 mg/dL (0.15-1.2); Total Protein 7.8 g/dL (6.6-8.7)
[2022-12-21 10:43] LABS: Immunoglobulin IGM 1560 mg/dL (40-230)
[2022-12-21] MEDS: sodium chloride 0.9% 500 ML 75 ML IV (12:04)
[2022-12-21] MEDS: diphenhydrAMINE 50 mg/mL SDV 1mL 25 MG IVP (12:05)
[2022-12-21] MEDS: acetaminophen 325 mg Tablet 650 MG PO (12:05)
[2022-12-21] MEDS: ondansetron 4 MG Tablet 8 MG PO (12:06)
[2022-12-21] MEDS: dexamethasone 4 mg Tablet 40 MG PO (12:07)
[2022-12-21] MEDS: bortezomib 3.5 mg SDV 2.5 MG SUBCUT (12:18)
[2022-12-21 15:25] VITALS: BP 105/66; PULSE 98; RESP 16; TEMP 36.3; O2SAT 97
[2022-12-22 08:40] LABS: PROTEIN, TOTAL 7.5 g/dL (6.1-8.1)
[2022-12-22 14:18] LABS: ABNORMAL PROTEIN BAND 1 1.3 g/dL (NONE DETECTED); ALBUMIN 3.6 g/dL (3.8-4.8); ALPHA 1 GLOBULIN 0.3 g/dL (0.2-0.3); ALPHA 2 GLOBULIN 0.7 g/dL (0.5-0.9); BETA 1 GLOBULIN 0.4 g/dL (0.4-0.6); BETA 2 GLOBULIN 0.3 g/dL (0.2-0.5); GAMMA GLOBULIN 2.1 g/dL (0.8-1.7)
[2022-12-24 07:56] VITALS: BMI 29.2
[2022-12-24] MEDS: dexamethasone 4 mg Tablet 40 MG PO (08:13)
[2022-12-24] MEDS: ondansetron 4 MG Tablet 8 MG PO (08:14)
[2022-12-24] MEDS: bortezomib 3.5 mg SDV 2.5 MG SUBCUT (08:39)
[2022-12-24 08:45] VITALS: BP 107/61; PULSE 110; RESP 16; TEMP 37.3; O2SAT 98
[2022-12-28 08:09] VITALS: BP 118/67; PULSE 96; RESP 18; TEMP 36.3; O2SAT 99
[2022-12-28 08:31] LABS: Basophils % 0.2 %; Hematocrit 27.4 % (42.0-52.0); Hemoglobin 9.2 g/dL (11.7-16.6); Lymphocytes # 1.3 10^3/uL (0.8-4.8); Lymphocytes % 29.8 %; Mean Corpuscular HGB Conc 33.6 g/dL (30.0-36.0); Mean Corpuscular Hemoglobin 30.2 pg (28.0-34.0); Mean Corpuscular Volume 89.8 fl (80-94); Mean Platelet Volume 8.6 fL (7.4-10.4); Monocytes # 0.3 10^3/uL (0.2-0.9); Monocytes % 7.1 %; Neutrophils # 2.78 10^3/uL (1.8-7.7); Neutrophils % 61.8 %; Nucleated Red Blood Cells % 0 %; Platelet Count 230 10^3/cmm (130-400); Red Blood Count 3.05 10^6/uL (4.1-5.3); Red Cell Distribution Width 15.4 % (12.1-15.1); White Blood Count 4.5 10^3/uL (4.0-10.0)
[2022-12-28] MEDS: dexamethasone 4 mg Tablet 40 MG PO (08:55)
[2022-12-28] MEDS: ondansetron 4 MG Tablet 8 MG PO (08:56)
[2022-12-28] MEDS: bortezomib 3.5 mg SDV 2.5 MG SUBCUT (09:09)
[2022-12-31 08:13] VITALS: BP 107/72; PULSE 80; RESP 18; TEMP 36.6; O2SAT 98
[2022-12-31] MEDS: ondansetron 4 MG Tablet 8 MG PO (08:17)
[2022-12-31] MEDS: dexamethasone 4 mg Tablet 40 MG PO (08:17)
[2022-12-31 08:20] VITALS: BP 107/72; PULSE 80; RESP 18; TEMP 36.6; O2SAT 98
[2022-12-31] MEDS: bortezomib 3.5 mg SDV 2.5 MG SUBCUT (08:57)
[2022-12-31 09:03] VITALS: BP 113/55; PULSE 77; RESP 18; TEMP 36.6; O2SAT 98
[2023-01-11] VITALS (7 sets, daily range): BP systolic 98–131; BP diastolic 61–79; PULSE 76–103; RESP 16–18; TEMP 35.8–36.6; O2SAT 98–99; BMI 29.6
[2023-01-11 07:42] LABS: Basophils % 0.3 %; Eosinophils # 0.1 10^3/uL (0.0-0.8); Eosinophils % 2.5 %; Hematocrit 28.1 % (37-53); Lymphocytes # 1.2 10^3/uL (0.8-4.8); Mean Corpuscular HGB Conc 33.1 g/dL (30-55); Mean Corpuscular Hemoglobin 30.8 pg (27-33); Mean Platelet Volume 8.7 fL (7.4-10.4); Monocytes # 0.2 10^3/uL (0.2-0.9); Monocytes % 7.1 %; Neutrophils # 1.75 10^3/uL (1.8-7.7); Neutrophils % 53.8 %; Nucleated Red Blood Cells % 0 %; Platelet Count 222 10^3/cmm (157-399); Red Blood Count 3.02 10^6/uL (3.85-5.65); Red Cell Distribution Width 14.8 % (12.1-15.1); White Blood Count 3.25 10^3/uL (3.29-11.43)
[2023-01-11 08:06] LABS: Alanine Aminotransferase 9 U/L (0-41); Albumin Level 3.5 g/dL (3.5-5.2); Alkaline Phosphatase 87 U/L (40-130); Blood Urea Nitrogen 24 mg/dL (8-23); Calcium 8.6 mg/dL (8.5-10.5); Carbon Dioxide 26 mmol/L (22-29); Chloride 103 mmol/L (98-107); Globulin 3.8 g/dL (1.3-4.6); Glomerular Filtration Rate 33.9 mL/min (90-130); Glucose 136 mg/dL (65-115); Osmolality Calculated 294 mOsm/kg (285-295); Sodium 139 mmol/L (136-145); Total Bilirubin 0.2 mg/dL (0.15-1.2); Total Protein 7.3 g/dL (6.6-8.7)
[2023-01-11 08:13] LABS: Anion Gap 14.1 (5-19); Potassium 4.1 mmol/L (3.5-5.1)
[2023-01-11 08:14] LABS: Aspartate Amino Transferase 18 U/L (0-40); Lactate Dehydrogenase 223 U/L (135-225)
[2023-01-11] MEDS: dexamethasone 4 mg Tablet 40 MG PO (09:55)
[2023-01-11] MEDS: ondansetron 4 MG Tablet 8 MG PO (09:55)
[2023-01-11] MEDS: sodium chloride 0.9% 500 ML 75 ML IV (11:09)
[2023-01-11] MEDS: diphenhydrAMINE 50 mg/mL SDV 1mL 25 MG IVP (11:13)
[2023-01-11] MEDS: acetaminophen 325 mg Tablet 650 MG PO (11:20)
[2023-01-11] MEDS: bortezomib 3.5 mg SDV 2.6 MG SUBCUT (14:34)
== END 2023-01-11 23:59 | disposition home or self-care (01) ==
PROVIDERS: PCP Family Medicine; Visit Provider Internal Medicine Medical Oncology
DX: Z51.11 Encounter for antineoplastic chemotherapy (principal); C88.0 Waldenstrom macroglobulinemia
CPT/HCPCS: 36415; 80053; 82784; 83615; 84155; 84165; 85025; 96367; 96368; 96374; 96375; 96401; 96402; 96413; 96415; 96417; J1200; J7040; J8540; J9041; Q0162; Q5115

== ENCOUNTER 2023-01-14 07:41 | Oncology outpatient (recurring) (ONCR) | payer OTHER, SELFPAY ==
[2023-01-14 08:05] VITALS: BP 107/64; PULSE 117; RESP 19; TEMP 37.2; O2SAT 99
[2023-01-14] MEDS: ondansetron 4 MG Tablet 8 MG PO (08:15)
[2023-01-14] MEDS: dexamethasone 4 mg Tablet 40 MG PO (08:16)
[2023-01-14] MEDS: bortezomib 3.5 mg SDV 2.6 MG SUBCUT (08:51)
[2023-01-14 08:58] VITALS: BP 114/65; PULSE 99; RESP 18; TEMP 36.8; O2SAT 99
== END 2023-01-14 23:59 | disposition home or self-care (01) ==
LOC: ONCMED 07:41
PROVIDERS: PCP Family Medicine; Visit Provider Internal Medicine Medical Oncology
DX: Z51.11 Encounter for antineoplastic chemotherapy (principal); C88.0 Waldenstrom macroglobulinemia
CPT/HCPCS: 96401; J8540; J9041; Q0162

== ENCOUNTER 2023-01-26 14:30 | Oncology outpatient (recurring) (ONCR) | payer OTHER, SELFPAY ==
[2023-01-19 07:44] LABS: Basophils % 0.3 %; Eosinophils % 1.3 %; Hematocrit 31.9 % (37-53); Lymphocytes # 1.5 10^3/uL (0.8-4.8); Lymphocytes % 45.9 %; Mean Corpuscular HGB Conc 32.9 g/dL (30-55); Mean Corpuscular Hemoglobin 30.8 pg (27-33); Mean Corpuscular Volume 93.5 fl (82-101); Mean Platelet Volume 9.1 fL (7.4-10.4); Monocytes # 0.4 10^3/uL (0.2-0.9); Monocytes % 10.9 %; Neutrophils # 1.31 10^3/uL (1.8-7.7); Nucleated Red Blood Cells % 0 %; Platelet Count 196 10^3/cmm (157-399); Red Blood Count 3.41 10^6/uL (3.85-5.65); Red Cell Distribution Width 14.8 % (12.1-15.1)
[2023-01-19 08:01] LABS: Alanine Aminotransferase 7 U/L (0-41); Albumin Level 3.5 g/dL (3.5-5.2); Alkaline Phosphatase 88 U/L (40-130); Anion Gap 14.7 (5-19); Aspartate Amino Transferase 11 U/L (0-40); Blood Urea Nitrogen 25 mg/dL (8-23); Calcium 8.5 mg/dL (8.5-10.5); Carbon Dioxide 26 mmol/L (22-29); Chloride 101 mmol/L (98-107); Globulin 3.9 g/dL (1.3-4.6); Glucose 135 mg/dL (65-115); Osmolality Calculated 292 mOsm/kg (285-295); Potassium 3.7 mmol/L (3.5-5.1); Sodium 138 mmol/L (136-145); Total Bilirubin 0.3 mg/dL (0.15-1.2); Total Protein 7.4 g/dL (6.6-8.7)
[2023-01-19] MEDS: dexamethasone 4 mg Tablet 40 MG PO (09:10)
[2023-01-19] MEDS: ondansetron 4 MG Tablet 8 MG PO (09:10)
[2023-01-19] MEDS: bortezomib 3.5 mg SDV 2.6 MG SUBCUT (09:22)
[2023-01-19 09:26] VITALS: BP 113/62; PULSE 58; RESP 17; TEMP 36.8; O2SAT 97
[2023-01-22 08:07] VITALS: BP 117/68; PULSE 104; RESP 18; TEMP 36; O2SAT 99
[2023-01-22] MEDS: dexamethasone 4 mg Tablet 40 MG PO (09:00)
[2023-01-22] MEDS: ondansetron 4 MG Tablet 8 MG PO (09:01)
[2023-01-22] MEDS: bortezomib 3.5 mg SDV 2.6 MG SUBCUT (09:04)
[2023-01-26 14:18] VITALS: BP 135/77; PULSE 105; RESP 18; TEMP 36.7; O2SAT 96
[2023-01-26 14:35] LABS: Basophils % 0.2 %; Eosinophils % 0.4 %; Hematocrit 31.2 % (37-53); Lymphocytes # 1.1 10^3/uL (0.8-4.8); Lymphocytes % 22.7 %; Mean Corpuscular HGB Conc 32.7 g/dL (30-55); Mean Corpuscular Hemoglobin 29.8 pg (27-33); Mean Corpuscular Volume 91.2 fl (82-101); Mean Platelet Volume 9.6 fL (7.4-10.4); Monocytes # 0.3 10^3/uL (0.2-0.9); Monocytes % 6.6 %; Neutrophils # 3.27 10^3/uL (1.8-7.7); Neutrophils % 69.5 %; Nucleated Red Blood Cells % 0 %; Platelet Count 201 10^3/cmm (157-399); Red Blood Count 3.42 10^6/uL (3.85-5.65); Red Cell Distribution Width 14.6 % (12.1-15.1); White Blood Count 4.71 10^3/uL (3.29-11.43)
[2023-01-26 14:48] LABS: Alanine Aminotransferase 8 U/L (0-41); Albumin Level 3.7 g/dL (3.5-5.2); Alkaline Phosphatase 87 U/L (40-130); Aspartate Amino Transferase 10 U/L (0-40); Blood Urea Nitrogen 30 mg/dL (8-23); Calcium 8.3 mg/dL (8.5-10.5); Carbon Dioxide 27 mmol/L (22-29); Chloride 101 mmol/L (98-107); Globulin 3.4 g/dL (1.3-4.6); Glucose 125 mg/dL (65-115); Osmolality Calculated 290 mOsm/kg (285-295); Sodium 136 mmol/L (136-145); Total Bilirubin 0.3 mg/dL (0.15-1.2); Total Protein 7.1 g/dL (6.6-8.7)
== END 2023-02-13 23:59 | disposition home or self-care (01) ==
PROVIDERS: Nurse Practitioner Family; PCP Family Medicine; Visit Provider Internal Medicine Medical Oncology
DX: C88.0 Waldenstrom macroglobulinemia; Z53.9 Procedure and treatment not carried out, unspecified reason
CPT/HCPCS: 36415; 80053; 85025; 96401; J8540; J9041; Q0162

== ENCOUNTER 2023-02-17 12:49 | Outpatient (CLI) | payer OTHER, SELFPAY ==
--- NOTE | 2023-02-17 14:00 | CT_ITS ---
WS: [id number] CT ABDOMEN PELVIS TECHNIQUE: Contrast-enhanced CT of the abdomen and pelvis with coronal and sagittal reformatted image s. CLINICAL INFORMATION: follow up COMPARISON: CT 08/26/2022 DLP: 534.[address] scans at [facility] use at least one of these dose optimization techniques: automated e xposure control; mA and/or kV adjustment per patient size (includes targeted exams where dose is matc hed to clinical indication); or iterative reconstruction. FINDINGS: Bibasilar atelectasis. Hepatomegaly and splenomegaly. Spleen measures 15.6 x 5.6 cm appears slightly improved. Normal GE junction. Normal pancreatic parenchymal enhancement. Adrenal glands are normal. N ormal renal parenchymal enhancement. No hydronephrosis. Normal caliber abdominal aorta. Urine distend ed bladder. Enlarged prostate measuring 5.1 cm. Recommend correlation PSA. This appears progressed co mpared to previous. A few normal sized and slightly prominent periaortic lymph nodes unchanged. Prominent aortocaval lymp h node measuring 11 mm appears unchanged. No evidence of progression. No progressed iliac or pelvic l ymphadenopathy. A few prominent common femoral lymph nodes similar to previous. Stable inguinal lymph nodes. Lymph no damian are stable to slightly improved compared to previous. IMPRESSION: 1. No evidence of new or progressed disease in the abdomen or pelvis. 2. Persistent splenomegaly which is improved described above. Persistent stable hepatomegaly. 3. Prominent periaortic, aortocaval, iliac, and common femoral lymph nodes stable to slightly improv ed compared to previous. No progressive adenopathy. 4. Largest lymph node measuring 1.5 cm RIGHT common femoral unchanged. Notable aortocaval lymph node measuring 11 mm unchanged. 5. Enlarged prostate measuring 5.1 cm appears progressed. Recommend correlation PSA. 6. No other suspicious findings.
[2023-02-17] MEDS: iohexol 350 mg/mL 500 mL Btl (per mL) PO (14:30)
[2023-02-17] MEDS: iohexol 350 mg/mL 500 mL Btl (per mL) IV (14:30)
== END 2023-02-17 12:50 | disposition home or self-care (01) ==
PROVIDERS: PCP Family Medicine; Visit Provider Internal Medicine Medical Oncology
DX: C88.0 Waldenstrom macroglobulinemia (principal); R16.2 Hepatomegaly with splenomegaly, not elsewhere classified; N40.0 Benign prostatic hyperplasia without lower urinary tract symptoms
CPT/HCPCS: 74177; Q9967

== ENCOUNTER 2023-03-03 14:33 | Oncology outpatient (recurring) (ONCR) | payer OTHER, SELFPAY ==
[2023-03-03 14:45] VITALS: BP 139/79; PULSE 105; RESP 16; TEMP 36.8; O2SAT 97
[2023-03-03 15:01] LABS: Basophils % 0.8 %; Eosinophils # 0.3 10^3/uL (0.0-0.8); Eosinophils % 5.5 %; Hematocrit 32.3 % (37-53); Lymphocytes # 1.8 10^3/uL (0.8-4.8); Lymphocytes % 37.4 %; Mean Corpuscular HGB Conc 33.7 g/dL (30-55); Mean Corpuscular Hemoglobin 30.4 pg (27-33); Mean Corpuscular Volume 90.2 fl (82-101); Mean Platelet Volume 8.3 fL (7.4-10.4); Monocytes # 0.4 10^3/uL (0.2-0.9); Monocytes % 8.2 %; Neutrophils # 2.31 10^3/uL (1.8-7.7); Neutrophils % 47.5 %; Nucleated Red Blood Cells % 0 %; Platelet Count 254 10^3/cmm (157-399); Red Blood Count 3.58 10^6/uL (3.85-5.65); Red Cell Distribution Width 15.5 % (12.1-15.1); White Blood Count 4.87 10^3/uL (3.29-11.43)
[2023-03-03 15:21] LABS: Alanine Aminotransferase 9 U/L (0-41); Alkaline Phosphatase 112 U/L (40-130); Anion Gap 14.8 (5-19); Aspartate Amino Transferase 14 U/L (0-40); Blood Urea Nitrogen 23 mg/dL (8-23); Calcium 9.2 mg/dL (8.5-10.5); Carbon Dioxide 25 mmol/L (22-29); Chloride 101 mmol/L (98-107); Globulin 3.8 g/dL (1.3-4.6); Glucose 123 mg/dL (65-115); Immunoglobulin IGA 191 mg/dL (70-400); Immunoglobulin IGG 1288 mg/dL (700-1600); Lactate Dehydrogenase 164 U/L (135-225); Osmolality Calculated 289 mOsm/kg (285-295); Potassium 3.8 mmol/L (3.5-5.1); Sodium 137 mmol/L (136-145); Total Bilirubin 0.4 mg/dL (0.15-1.2); Total Protein 7.8 g/dL (6.6-8.7)
[2023-03-03 17:24] LABS: Immunoglobulin IGM 1229 mg/dL (40-230)
[2023-03-04 11:05] LABS: PROTEIN, TOTAL 7.3 g/dL (6.1-8.1)
[2023-03-04 17:44] LABS: ALBUMIN 3.7 g/dL (3.8-4.8); ALPHA 1 GLOBULIN 0.3 g/dL (0.2-0.3); ALPHA 2 GLOBULIN 0.6 g/dL (0.5-0.9); BETA 1 GLOBULIN 0.4 g/dL (0.4-0.6); BETA 2 GLOBULIN 0.4 g/dL (0.2-0.5); GAMMA GLOBULIN 1.9 g/dL (0.8-1.7)
== END 2023-03-16 23:59 | disposition home or self-care (01) ==
LOC: ONCMED 14:33
PROVIDERS: PCP Family Medicine; Visit Provider Internal Medicine Medical Oncology
DX: C88.0 Waldenstrom macroglobulinemia (principal)
CPT/HCPCS: 36415; 80053; 82784; 83615; 84155; 84165; 85025

== ENCOUNTER 2023-04-28 11:03 | Oncology outpatient (recurring) (ONCR) | payer OTHER, SELFPAY ==
[2023-04-28 13:04] LABS: Basophils % 0.9 %; Eosinophils # 0.3 10^3/uL (0.0-0.8); Eosinophils % 5.6 %; Hematocrit 32.6 % (37-53); Lymphocytes # 1.8 10^3/uL (0.8-4.8); Mean Corpuscular HGB Conc 34.7 g/dL (30-55); Mean Corpuscular Hemoglobin 31.3 pg (27-33); Mean Corpuscular Volume 90.3 fl (82-101); Mean Platelet Volume 7.9 fL (7.4-10.4); Monocytes # 0.3 10^3/uL (0.2-0.9); Monocytes % 7.4 %; Neutrophils # 1.98 10^3/uL (1.8-7.7); Neutrophils % 44.6 %; Nucleated Red Blood Cells % 0 %; Platelet Count 256 10^3/cmm (157-399); Red Blood Count 3.61 10^6/uL (3.85-5.65); Red Cell Distribution Width 15.2 % (12.1-15.1); White Blood Count 4.44 10^3/uL (3.29-11.43)
[2023-04-28 13:25] LABS: Alanine Aminotransferase 13 U/L (0-41); Albumin Level 4.1 g/dL (3.5-5.2); Alkaline Phosphatase 105 U/L (40-130); Anion Gap 14.8 (5-19); Aspartate Amino Transferase 18 U/L (0-40); Blood Urea Nitrogen 22 mg/dL (8-23); Calcium 8.9 mg/dL (8.5-10.5); Carbon Dioxide 24 mmol/L (22-29); Chloride 103 mmol/L (98-107); Globulin 3.9 g/dL (1.3-4.6); Glomerular Filtration Rate 38.3 mL/min (90-130); Glucose 107 mg/dL (65-115); Lactate Dehydrogenase 158 U/L (135-225); Osmolality Calculated 290 mOsm/kg (285-295); Potassium 3.8 mmol/L (3.5-5.1); Sodium 138 mmol/L (136-145); Total Bilirubin 0.5 mg/dL (0.15-1.2)
[2023-04-29 15:07] LABS: Immunoglobulin IGA 214 mg/dL (70-400); Immunoglobulin IGG 1391 mg/dL (700-1600)
[2023-04-29 16:48] LABS: Immunoglobulin IGM 1109 mg/dL (40-230)
== END 2023-05-16 23:59 | disposition home or self-care (01) ==
PROVIDERS: PCP Family Medicine; Visit Provider Internal Medicine Medical Oncology
DX: C88.0 Waldenstrom macroglobulinemia (principal); D72.819 Decreased white blood cell count, unspecified; D64.9 Anemia, unspecified
CPT/HCPCS: 36415; 80053; 82784; 83615; 85025

== ENCOUNTER 2023-07-28 11:39 | Oncology outpatient (recurring) (ONCR) | payer OTHER, SELFPAY ==
[2023-07-28 12:04] LABS: Basophils % 0.7 %; Eosinophils # 0.4 10^3/uL (0.0-0.8); Hematocrit 34.2 % (37-53); Lymphocytes # 2.9 10^3/uL (0.8-4.8); Lymphocytes % 49.2 %; Mean Corpuscular HGB Conc 34.2 g/dL (30-55); Mean Corpuscular Hemoglobin 30.7 pg (27-33); Mean Corpuscular Volume 89.8 fl (82-101); Mean Platelet Volume 8.2 fL (7.4-10.4); Monocytes # 0.5 10^3/uL (0.2-0.9); Monocytes % 8.2 %; Neutrophils # 2.02 10^3/uL (1.8-7.7); Neutrophils % 34.6 %; Nucleated Red Blood Cells % 0 %; Platelet Count 280 10^3/cmm (157-399); Red Blood Count 3.81 10^6/uL (3.85-5.65); Red Cell Distribution Width 15.3 % (12.1-15.1); White Blood Count 5.85 10^3/uL (3.29-11.43)
[2023-07-28 12:27] LABS: Alanine Aminotransferase 18 U/L (0-41); Albumin Level 4.1 g/dL (3.5-5.2); Alkaline Phosphatase 114 U/L (40-130); Anion Gap 15.3 (5-19); Aspartate Amino Transferase 25 U/L (0-40); Blood Urea Nitrogen 20 mg/dL (8-23); Calcium 9.2 mg/dL (8.5-10.5); Carbon Dioxide 25 mmol/L (22-29); Chloride 101 mmol/L (98-107); Globulin 3.9 g/dL (1.3-4.6); Glomerular Filtration Rate 38.2 mL/min (90-130); Glucose 102 mg/dL (65-115); Lactate Dehydrogenase 191 U/L (135-225); Osmolality Calculated 287 mOsm/kg (285-295); Potassium 4.3 mmol/L (3.5-5.1); Sodium 137 mmol/L (136-145); Total Bilirubin 0.5 mg/dL (0.15-1.2)
== END 2023-08-15 23:59 | disposition home or self-care (01) ==
PROVIDERS: PCP Family Medicine; Visit Provider Internal Medicine Medical Oncology
DX: C88.0 Waldenstrom macroglobulinemia (principal); Z53.9 Procedure and treatment not carried out, unspecified reason
CPT/HCPCS: 36415; 80053; 83615; 85025

== ENCOUNTER 2023-10-28 12:11 | Oncology outpatient (recurring) (ONCR) | payer OTHER, SELFPAY ==
[2023-10-28 12:50] LABS: Basophils % 0.8 %; Eosinophils # 0.3 10^3/uL (0.0-0.8); Eosinophils % 6.2 %; Hematocrit 33.2 % (37-53); Lymphocytes # 1.8 10^3/uL (0.8-4.8); Lymphocytes % 36.4 %; Mean Corpuscular HGB Conc 33.7 g/dL (30-55); Mean Corpuscular Hemoglobin 30.6 pg (27-33); Mean Corpuscular Volume 90.7 fl (82-101); Mean Platelet Volume 8.1 fL (7.4-10.4); Monocytes # 0.3 10^3/uL (0.2-0.9); Monocytes % 6.8 %; Neutrophils % 49.4 %; Nucleated Red Blood Cells % 0 %; Platelet Count 257 10^3/cmm (157-399); Red Blood Count 3.66 10^6/uL (3.85-5.65); Red Cell Distribution Width 15.9 % (12.1-15.1); White Blood Count 4.86 10^3/uL (3.29-11.43)
[2023-10-28 13:06] LABS: Alanine Aminotransferase 14 U/L (0-41); Albumin Level 3.8 g/dL (3.5-5.2); Alkaline Phosphatase 104 U/L (40-130); Anion Gap 15.9 (5-19); Aspartate Amino Transferase 21 U/L (0-40); Blood Urea Nitrogen 23 mg/dL (8-23); Calcium 8.9 mg/dL (8.5-10.5); Carbon Dioxide 24 mmol/L (22-29); Chloride 100 mmol/L (98-107); Globulin 4.1 g/dL (1.3-4.6); Glomerular Filtration Rate 38.2 mL/min (90-130); Glucose 119 mg/dL (65-115); Lactate Dehydrogenase 161 U/L (135-225); Osmolality Calculated 287 mOsm/kg (285-295); Potassium 3.9 mmol/L (3.5-5.1); Sodium 136 mmol/L (136-145); Total Bilirubin 0.4 mg/dL (0.15-1.2); Total Protein 7.9 g/dL (6.6-8.7)
[2023-10-29 08:35] LABS: PROTEIN, TOTAL 7.6 g/dL (6.1-8.1)
[2023-10-29 15:33] LABS: ABNORMAL PROTEIN BAND 1 0.9 g/dL (NONE DETECTED); ALBUMIN 3.8 g/dL (3.8-4.8); ALPHA 1 GLOBULIN 0.3 g/dL (0.2-0.3); ALPHA 2 GLOBULIN 0.6 g/dL (0.5-0.9); BETA 1 GLOBULIN 0.4 g/dL (0.4-0.6); BETA 2 GLOBULIN 0.4 g/dL (0.2-0.5); GAMMA GLOBULIN 2.1 g/dL (0.8-1.7)
== END 2023-11-14 23:59 | disposition home or self-care (01) ==
PROVIDERS: PCP Family Medicine; Visit Provider Internal Medicine Medical Oncology
DX: C88.0 Waldenstrom macroglobulinemia (principal); Z53.9 Procedure and treatment not carried out, unspecified reason
CPT/HCPCS: 36415; 80053; 83615; 84155; 84165; 85025; 86334

== ENCOUNTER 2024-01-31 12:17 | Oncology outpatient (recurring) (ONCR) | payer OTHER, SELFPAY ==
[2024-01-31 12:44] LABS: Basophils % 0.8 %; Eosinophils # 0.3 10^3/uL (0.0-0.8); Eosinophils % 5.5 %; Hematocrit 33.3 % (37-53); Lymphocytes # 1.9 10^3/uL (0.8-4.8); Lymphocytes % 40.9 %; Mean Corpuscular HGB Conc 33.6 g/dL (30-55); Mean Corpuscular Hemoglobin 30.4 pg (27-33); Mean Corpuscular Volume 90.5 fl (82-101); Mean Platelet Volume 8.1 fL (7.4-10.4); Monocytes # 0.4 10^3/uL (0.2-0.9); Monocytes % 7.8 %; Neutrophils % 44.4 %; Nucleated Red Blood Cells % 0 %; Platelet Count 274 10^3/cmm (157-399); Red Blood Count 3.68 10^6/uL (3.85-5.65); Red Cell Distribution Width 16.6 % (12.1-15.1); White Blood Count 4.74 10^3/uL (3.29-11.43)
[2024-01-31 13:36] LABS: Alanine Aminotransferase 14 U/L (0-41); Albumin Level 3.9 g/dL (3.5-5.2); Alkaline Phosphatase 104 U/L (40-130); Anion Gap 15.9 (5-19); Aspartate Amino Transferase 20 U/L (0-40); Blood Urea Nitrogen 25 mg/dL (8-23); Calcium 8.7 mg/dL (8.5-10.5); Carbon Dioxide 24 mmol/L (22-29); Chloride 100 mmol/L (98-107); Globulin 4.1 g/dL (1.3-4.6); Glomerular Filtration Rate 35.9 mL/min (90-130); Glucose 153 mg/dL (65-115); Lactate Dehydrogenase 155 U/L (135-225); Osmolality Calculated 289 mOsm/kg (285-295); Potassium 3.9 mmol/L (3.5-5.1); Sodium 136 mmol/L (136-145); Total Bilirubin 0.4 mg/dL (0.15-1.2)
[2024-02-01 10:14] LABS: PROTEIN, TOTAL 7.7 g/dL (6.1-8.1)
[2024-02-01 15:19] LABS: ABNORMAL PROTEIN BAND 1 1.1 g/dL (NONE DETECTED); ALBUMIN 3.7 g/dL (3.8-4.8); ALPHA 1 GLOBULIN 0.3 g/dL (0.2-0.3); ALPHA 2 GLOBULIN 0.6 g/dL (0.5-0.9); BETA 1 GLOBULIN 0.4 g/dL (0.4-0.6); BETA 2 GLOBULIN 0.4 g/dL (0.2-0.5); GAMMA GLOBULIN 2.3 g/dL (0.8-1.7)
== END 2024-02-14 23:59 | disposition home or self-care (01) ==
PROVIDERS: Nurse Practitioner; PCP Family Medicine; Visit Provider Internal Medicine Medical Oncology
DX: C88.0 Waldenstrom macroglobulinemia (principal); Z53.9 Procedure and treatment not carried out, unspecified reason
CPT/HCPCS: 36415; 80053; 83615; 84155; 84165; 85025; 86334

== ENCOUNTER → 2024-08-01 09:11 | Outpatient (BNVA) | payer MEDICARE, OTHER, SELFPAY | PROVIDERS: PCP Family Medicine; Visit Provider Nurse Practitioner Family | DX: L57.8 Other skin changes due to chronic exposure to nonionizing radiation (principal); L81.4 Other melanin hyperpigmentation; Z08 Encounter for follow-up examination after completed treatment for malignant neoplasm; Z85.828 Personal history of other malignant neoplasm of skin; L57.0 Actinic keratosis | CPT/HCPCS: 17000; 99213 ==

== ENCOUNTER 2024-08-02 07:40 | Oncology outpatient (recurring) (ONCR) | payer MEDICARE, OTHER, SELFPAY ==
[2024-08-02 08:14] LABS: Basophils % 0.7 %; Eosinophils # 0.1 10^3/uL (0.0-0.8); Eosinophils % 2.6 %; Hematocrit 33.5 % (37-53); Lymphocytes # 2.6 10^3/uL (0.8-4.8); Lymphocytes % 47.5 %; Mean Corpuscular HGB Conc 32.2 g/dL (30-55); Mean Corpuscular Hemoglobin 29.5 pg (27-33); Mean Corpuscular Volume 91.5 fl (82-101); Mean Platelet Volume 8.2 fL (7.4-10.4); Monocytes # 0.4 10^3/uL (0.2-0.9); Monocytes % 8.1 %; Neutrophils % 40.7 %; Nucleated Red Blood Cells % 0 %; Platelet Count 259 10^3/cmm (157-399); Red Blood Count 3.66 10^6/uL (3.85-5.65); White Blood Count 5.41 10^3/uL (3.29-11.43)
[2024-08-02 08:34] LABS: Alanine Aminotransferase 14 U/L (0-41); Alkaline Phosphatase 101 U/L (40-130); Anion Gap 13.7 (5-19); Aspartate Amino Transferase 21 U/L (0-40); Blood Urea Nitrogen 22 mg/dL (8-23); Carbon Dioxide 24 mmol/L (22-29); Chloride 101 mmol/L (98-107); Glomerular Filtration Rate 38.1 mL/min (90-130); Glucose 147 mg/dL (65-115); Lactate Dehydrogenase 160 U/L (135-225); Osmolality Calculated 286 mOsm/kg (285-295); Potassium 3.7 mmol/L (3.5-5.1); Sodium 135 mmol/L (136-145); Total Bilirubin 0.4 mg/dL (0.15-1.2)
[2024-08-03 08:53] LABS: PROTEIN, TOTAL 7.7 g/dL (6.1-8.1)
[2024-08-04 08:49] LABS: ABNORMAL PROTEIN BAND 1 1.1 g/dL (NONE DETECTED); ALBUMIN 3.7 g/dL (3.8-4.8); ALPHA 1 GLOBULIN 0.3 g/dL (0.2-0.3); ALPHA 2 GLOBULIN 0.6 g/dL (0.5-0.9); BETA 1 GLOBULIN 0.4 g/dL (0.4-0.6); BETA 2 GLOBULIN 0.4 g/dL (0.2-0.5); GAMMA GLOBULIN 2.3 g/dL (0.8-1.7)
== END 2024-08-14 23:59 | disposition home or self-care (01) ==
PROVIDERS: Nurse Practitioner; PCP Family Medicine; Visit Provider Internal Medicine
DX: C88.01 Waldenstrom macroglobulinemia, in remission (principal)
CPT/HCPCS: 36415; 80053; 83615; 84155; 84165; 85025; 86334; 99214

== ENCOUNTER 2025-01-31 12:08 | Oncology outpatient (recurring) (ONCR) | payer MEDICARE, OTHER, SELFPAY ==
[2025-01-31 12:21] LABS: Hematocrit 35.0 % (37-53); Hemoglobin 11.20 g/dL (11.27-16.99); Mean Corpuscular HGB Conc 32.0 g/dL (30-55); Mean Corpuscular Hemoglobin 28.3 pg (27-33); Mean Corpuscular Volume 88.4 fl (82-101); Nucleated Red Blood Cells % 0 %; Platelet Count 277 10^3/cmm (157-399); Red Blood Count 3.96 10^6/uL (3.85-5.65); White Blood Count 5.56 10^3/uL (3.29-11.43)
[2025-01-31 12:51] LABS: Alanine Aminotransferase 12 U/L (0-41); Albumin Level 3.8 g/dL (3.5-5.2); Alkaline Phosphatase 102 U/L (40-130); Anion Gap 17.0 (5-19); Aspartate Amino Transferase 19 U/L (0-40); Blood Urea Nitrogen 23 mg/dL (8-23); Calcium 9.2 mg/dL (8.5-10.5); Carbon Dioxide 25 mmol/L (22-29); Chloride 102 mmol/L (98-107); Creatinine Clr Calc Pharmacy 45.0147; Globulin 5.1 g/dL (1.3-4.6); Glucose 112 mg/dL (65-115); Osmolality Calculated 292 mOsm/kg (285-295); Potassium 5.0 mmol/L (3.5-5.1); Sodium 139 mmol/L (136-145); Total Protein 8.9 g/dL (6.6-8.7)
[2025-02-01 06:05] LABS: PROTEIN, TOTAL 8.3 g/dL (6.1-8.1)
[2025-02-02 09:35] LABS: ALPHA 1 GLOBULIN 0.4 g/dL (0.2-0.3); ALPHA 2 GLOBULIN 0.7 g/dL (0.5-0.9); BETA 1 GLOBULIN 0.4 g/dL (0.4-0.6); BETA 2 GLOBULIN 0.5 g/dL (0.2-0.5)
== END 2025-02-13 23:59 | disposition home or self-care (01) ==
PROVIDERS: Nurse Practitioner Family; PCP Family Medicine; Visit Provider Internal Medicine
DX: C88.01 Waldenstrom macroglobulinemia, in remission (principal)
CPT/HCPCS: 36415; 80053; 82784; 84155; 84165; 85025; 99213

== ENCOUNTER → 2025-02-01 09:30 | Outpatient (BNVA) | payer MEDICARE, OTHER, SELFPAY | PROVIDERS: PCP Family Medicine; Visit Provider Nurse Practitioner Family | DX: L57.8 Other skin changes due to chronic exposure to nonionizing radiation (principal); L81.4 Other melanin hyperpigmentation; L82.1 Other seborrheic keratosis; Z08 Encounter for follow-up examination after completed treatment for malignant neoplasm; Z85.828 Personal history of other malignant neoplasm of skin; L57.0 Actinic keratosis | CPT/HCPCS: 17000; 99213 ==